=== PATIENT | female | born 1935 | race Caucasian/White ===

== ENCOUNTER 2017-08-13 15:14 | Inpatient (IN) ==
[2017-08-13] MEDS ORDERED: 0.9 % Sodium Chloride 1,000 ML IVC ONE (15:36)
[2017-08-13] MEDS ORDERED: Ondansetron 4 MG/2 ML VIAL IVP PRN ×2 (15:37→23:39)
--- NOTE | 2017-08-13 15:43 | Emergency Department Note ---
Disposition Clinical Impression: Non-STEMI (non-ST elevated myocardial infarction) Abdominal pain Qualifiers: Abdominal location: generalized Qualified Code(s): R10.84 - Generalized abdominal pain Nausea and vomiting Qualifiers: Vomiting type: unspecified Vomiting Intractability: intractable Qualified Code( s): R11.2 - Nausea with vomiting, unspecified Disposition: Admitted As Inpatient Condition: Serious Time of Disposition: 21:06 General Adult HPI - General Chief complaint: ED Chest Pain Stated complaint: chest pain Time Seen by Provider: 08/13/17 15:19 Source: patient Limitations: no limitations Nursing Notes Reviewed: Yes Vital Signs Reviewed: Yes - History of Present Illness HPI Narrative: 82-year-old female complains of generalized abdominal pain 1 week. Patient states the pain has been sharp, constant but varying in intensity. Patient states over the past 3 days the pain has increased to 10/10. Patient notes out of her pain medications at home this made it better. Patient is on oxycodone 10 /325 for chronic back pain. Patient complains of high blood pressures and associated headache from high blood pressures. Patient states her headache has been going on for the past 2 weeks. Patient had follow-up with her PCP Dr. Sierra who told him that he can't add anything else for pain with her history of Parkinson's and current medications. Patient's son at bedside states that patient has been dry heaving since earlier today. Patient's last bowel movement was one day ago 2 bouts. Stool is nonbloody. Patient does state that she has been having a lot of constipation, but is using MiraLAX. Pain Scale: 10 - Related Data Home Medications Medication Instructions Recorded Confirmed Multivitamin/Iron/Folic Acid 1 each PO DAILY 08/03/15 08/13/17 [Centrum Complete Multivit Tab] Nitroglycerin [Nitrostat] 0.4 mg SL Q5M PRN 08/03/15 08/13/17 Omeprazole [PriLOSEC] 40 mg PO DAILY 08/03/15 08/13/17 Simvastatin [Zocor] 20 mg PO QPM 08/03/15 08/13/17 Lactobacillus Acidophilus 1 mg PO DAILY 11/23/15 08/13/17 [Acidophilus Probiotic] ALPRAZolam [Xanax 1 MG Tablet] 1 mg PO QID PRN 08/13/17 08/13/17 Furosemide [Lasix] 40 mg PO DAILY 08/13/17 08/13/17 Meclizine HCl [Verticalm] 25 mg PO BID PRN 08/13/17 08/13/17 Tizanidine HCl [Tizanidine HCl] 2 mg PO TID PRN 08/13/17 08/13/17 amLODIPine [Norvasc] 5 mg PO DAILY 08/13/17 08/13/17 cloNIDine HCl [Clonidine HCl] 0.2 mg PO TID 08/13/17 08/13/17 predniSONE [PredniSONE] 5 mg PO DAILY 08/13/17 08/13/17 Previous Rx's Medication Instructions Recorded Aspirin [Adult Low Dose Aspirin EC] 81 mg PO DAILY 30 Days tablet. 08/10/15 Amantadine [Symmetrel] 100 mg PO DAILY #30 capsule 11/26/15 Oxycodone HCl/Acetaminophen 1 tab PO Q6H PRN #30 tab 11/26/15 [Percocet 10-325 mg Tablet] Allergies Allergy/AdvReac Type Severity Reaction Status Date / Time cefuroxime [From Ceftin] Allergy Rash Verified 11/23/15 11:11 codeine Allergy Hallucinati Verified 11/23/15 11:11 ng levofloxacin [From Levaquin] Allergy Rash Verified 11/23/15 11:11 meloxicam Allergy Rash Verified 11/23/15 11:11 meperidine Allergy Rash Verified 11/23/15 11:11 morphine Allergy Hallucinati Verified 11/23/15 11:11 ng ondansetron Allergy Dizziness Verified 11/23/15 11:11 Sulfa (Sulfonamide Allergy Hives Verified 11/23/15 11:11 Antibiotics) terfenadine Allergy Rash Verified 11/23/15 11:11 All systems ED: reviewed and negative except as stated. Review of Systems: As Per HPI Constitutional: Reports: weakness. Denies: fever, chills Gastrointestinal: Reports: abdominal pain, nausea, vomiting, constipation Musculoskeletal: Reports: back pain (Low back), myalgia Psychiatric: Reports: anxiety Endocrine: Reports: fatigue Past Medical History - Past Medical History Attestation: Yes The following information was validated with the patient. Source: patient, nursing notes reviewed Medical history: Reports: arthritis, atrial fibrillation, cancer, coronary artery disease, fibromyalgia, GERD, hyperlipidemia, hypertension, myocardial infarction, other Surgical history: Reports: angioplasty/stent, cholecystectomy, colectomy, herniorrhaphy, hysterectomy, knee replacement Psychiatric history: Reports: anxiety, depression SAFETY SUPERVISOR history: Reports: no SAFETY SUPERVISOR history - Social History Smoking Status: Never smoker Smokeless Tobacco Status: No Alcohol use: Reports: none Drug use: Reports: none Physical Exam Vital Signs Temperature 97.6 F 08/13/17 15:18 Pulse Rate 98 08/13/17 15:18 Respiratory Rate 08/13/17 15:18 Blood Pressure 149/100 08/13/17 15:18 O2 Sat by Pulse Oximetry 98 08/13/17 15:18 Temperature 97.6 F 08/13/17 15:18 Pulse Rate 98 08/13/17 15:18 Respiratory Rate 08/13/17 15:18 Blood Pressure 149/100 08/13/17 15:18 O2 Sat by Pulse Oximetry 98 08/13/17 15:18 Oxygen Delivery Oxygen Delivery Room Air CONSTITUTIONAL: Alert and oriented X3, well-nourished, but appears to be in acute distress and has conversational dyspnea. Patient is taken short shallow breaths. HEAD: Normocephalic; atraumatic. EYES: PERRL, no scleral icterus. NOSE: The nose is normal in appearance without rhinorrhea RESP: Normal chest excursion with respiration; breath sounds clear and equal bilaterally; no wheezes, rhonchi, or rales CARD: Regular rhythm, without murmurs, rub or gallop ABD: Diffuse tenderness to palpation but appears worse in the epigastric region. Involuntary guarding no rebound tenderness. SKIN: Normal for age and race; warm and dry; no apparent lesions Vital signs are normal exception of blood pressure which is 149/100 - General Limitations: no limitations General appearance: alert, anxious Course - Reevaluation(s) Reevaluation #1: Patient has elevated troponin will be admitted for an STEMI Time: 18:27 Reevaluation #2: Patient complains of headache and is receiving 1 g Tylenol for her headache. Still attempting to get an IV started on the patient to continue patient's therapy so she can be admitted. Time: 18:33 - Consultations Consultation #1: Dr. Pino the hospitalist has accepted patient for admission Time: 19:09 Vital Signs Temperature 97.6 F 08/13/17 15:18 Pulse Rate 98 08/13/17 15:18 Respiratory Rate 26 08/13/17 15:18 Blood Pressure 149/100 08/13/17 15:18 O2 Sat by Pulse Oximetry 98 08/13/17 15:18 Temperature 98.2 F 08/13/17 20:25 Pulse Rate 80 08/13/17 20:25 Respiratory Rate 16 08/13/17 20:25 Blood Pressure 116/73 08/13/17 20:25 O2 Sat by Pulse Oximetry 96 08/13/17 20:25 Oxygen Delivery Oxygen Delivery Room Air Medical Decision Making - MDM Narrative Medical decision making narrative: Abdominal pain and concerns for mesenteric ischemia, bowel obstruction. Patient is a history of abdominal neoplasm but also has record of a CT abdomen and pelvis times one week ago which showed no tumor. It did show moderate stool Berdan for constipation. Patient has only had 2 bowel movements since then times one day ago. pt had her home meds of [place] 10/325 and her Ativan within the last hour for her pain symptoms. Patient's pain persists but given her age I am reluctant to add any further opiate pain medicine to her regimen at this time Ordered labs and imaging to encompass the chest and abdomen since patient is tachypneic and has conversational dyspnea. Patient's troponin came back elevated at 0.33. Patient still has no chest pain. We will consult cardiology. Patient will be brought into the hospital for NSTEMI. I consulted Dr. Juan David Pryor of cardiology who agrees with treatment and plan. Family to get an ultrasound-guided line placed in the left antecubital. Patient has been started on her heparin. Patient accepts this decision for admission. Dr. Pino the hospitalist has accepted patient for admission - Lab Data Lab results reviewed: Yes I reviewed the patient's lab results. Lab results narrative: Short CBC 08/13/17 08/13/17 Range/Units 19:40 17:02 WBC 9.6 10.9 (4.3-11.1) K/mcL Hgb 11.2 L 12.3 (11.5-15.4) g/dL Hct 33.4 L 36.1 (35.3-44.9) % Plt Count 293 327 (140-400) K/mcL Neutrophils # 8.0 (1.6-8.9) K/mcL BMP 08/13/17 Range/Units 17:02 Sodium 127 L (136-145) mEq/L Potassium 3.6 (3.5-5.1) mEq/L Chloride 94 L (98-107) mEq/L Carbon Dioxide 23 (23-29) mEq/L BUN 14 (8-23) mg/dL Creatinine 0.90 (0.60-1.20) mg/dL Glucose 120 H (70-105) mg/dL Calcium 9.6 (8.6-10.3) mg/dL Cardiac Enzymes 08/13/17 Range/Units 17:02 Troponin I 0.33 H* (< 0.04) ng/mL Liver Function 08/13/17 Range/Units 17:02 Total Bilirubin 0.5 (0.3-1.0) mg/dL Direct Bilirubin 0.1 (0.0-0.2) mg/dL AST 18 (13-39) Units/L ALT 14 (7-52) Units/L Alkaline Phosphatase 137 H (34-104) Units/L Albumin 3.9 (3.5-5.7) g/dL Urine 08/13/17 Range/Units 17:44 Urine Color Yellow (Yellow) Urine Clarity Clear (Clear) Urine pH 6.0 (5.0-8.0) pH Units Ur Specific [place] 1.018 (1.010-1.025) Urine Protein Negative (Neg-Trace) mg/dL Urine Glucose (UA) Normal (Normal) mg/dL Result diagrams: 08/13/17 19:40 08/13/17 17:02 Lab Results 08/13/17 08/13/17 08/13/17 Range/Units 17:02 17:02 17:02 WBC 10.9 (4.3-11.1) K/mcL RBC 4.30 (3.82-4.97) M/mcL Hgb 12.3 (11.5-15.4) g/dL Hct 36.1 (35.3-44.9) % MCV 84.0 (83.0-100.0) fL MCH 28.6 (28.0-33.3) pg MCHC 34.1 (31.6-35.5) g/dL RDW 13.2 (11.5-14.5) % Plt Count 327 (140-400) K/mcL MPV 9.2 L (9.4-12.4) fL Immature Gran % 0.5 (0-4) % Seg Neutrophils % 74.1 % Lymphocytes % 16.1 % Monocytes % 8.3 % Eosinophils % 0.6 % Basophils % 0.4 % Neutrophils # 8.0 (1.6-8.9) K/mcL Lymphocytes # 1.8 (0.6-4.6) K/mcL Monocytes # 0.9 (0.0-1.3) K/mcL Eosinophils # 0.1 (0.0-0.6) K/mcL Basophils # 0.0 (0.0-0.2) K/mcL PT (9.4-12.1) Seconds INR APTT (26.0-36.0) Seconds Heparin Anti-Xa, Unfract (0.30-0.70) IU/mL Sodium 127 L (136-145) mEq/L Potassium 3.6 (3.5-5.1) mEq/L Chloride 94 L (98-107) mEq/L Carbon Dioxide 23 (23-29) mEq/L BUN 14 (8-23) mg/dL Creatinine 0.90 (0.60-1.20) mg/dL Est GFR ( Amer) > 60 (> 60) Est GFR (Non-Af Amer) > 60 (> 60) BUN/Creatinine Ratio 16 (6-26) Glucose 120 H (70-105) mg/dL Calculated Osmolality 266 L (280-300) Lactic Acid 0.9 (0.5-2.2) mmol/L Calcium 9.6 (8.6-10.3) mg/dL Total Bilirubin 0.5 (0.3-1.0) mg/dL Direct Bilirubin 0.1 (0.0-0.2) mg/dL Indirect Bilirubin 0.4 (0.0-1.2) mg/dL AST 18 (13-39) Units/L ALT 14 (7-52) Units/L Alkaline Phosphatase 137 H (34-104) Units/L Troponin I (< 0.04) ng/mL Serum Total Protein 7.2 (6.4-8.9) g/dL Albumin 3.9 (3.5-5.7) g/dL Globulin 3.3 (2.4-3.5) g/dL Albumin/Globulin Ratio 1.2 (1.1-2.2) Lipase 7 L (11-82) Units/L Urine Color (Yellow) Urine Clarity (Clear) Urine pH (5.0-8.0) pH Units Ur Specific [place] (1.010-1.025) Urine Protein (Neg-Trace) mg/dL Urine Glucose (UA) (Normal) mg/dL Urine Ketones (Negative) mg/dL Urine Blood (Negative) Urine Nitrite (Negative) Urine Bilirubin (Negative) Urine Urobilinogen (Normal) mg/dL Ur Leukocyte Esterase (Negative) Urine Microscopic RBC (0-3) per hpf Urine Microscopic WBC (0-3) per hpf Ur Squamous Epith Cells (None-Few) per lpf Urine Bacteria (None-Few) per hpf Hyaline Casts (None-Few) per lpf Ur Culture Indicated? (NO) 08/13/17 08/13/17 08/13/17 Range/Units 17:02 17:44 19:40 WBC 9.6 (4.3-11.1) K/mcL RBC 3.93 (3.82-4.97) M/mcL Hgb 11.2 L (11.5-15.4) g/dL Hct 33.4 L (35.3-44.9) % MCV 85.0 (83.0-100.0) fL MCH 28.5 (28.0-33.3) pg MCHC 33.5 (31.6-35.5) g/dL RDW 13.2 (11.5-14.5) % Plt Count 293 (140-400) K/mcL MPV 9.0 L (9.4-12.4) fL Immature Gran % (0-4) % Seg Neutrophils % % Lymphocytes % % Monocytes % % Eosinophils % % Basophils % % Neutrophils # (1.6-8.9) K/mcL Lymphocytes # (0.6-4.6) K/mcL Monocytes # (0.0-1.3) K/mcL Eosinophils # (0.0-0.6) K/mcL Basophils # (0.0-0.2) K/mcL PT (9.4-12.1) Seconds INR APTT (26.0-36.0) Seconds Heparin Anti-Xa, Unfract (0.30-0.70) IU/mL Sodium (136-145) mEq/L Potassium (3.5-5.1) mEq/L Chloride (98-107) mEq/L Carbon Dioxide (23-29) mEq/L BUN (8-23) mg/dL Creatinine (0.60-1.20) mg/dL Est GFR ( Amer) (> 60) Est GFR (Non-Af Amer) (> 60) BUN/Creatinine Ratio (6-26) Glucose (70-105) mg/dL Calculated Osmolality (280-300) Lactic Acid (0.5-2.2) mmol/L Calcium (8.6-10.3) mg/dL Total Bilirubin (0.3-1.0) mg/dL Direct Bilirubin (0.0-0.2) mg/dL Indirect Bilirubin (0.0-1.2) mg/dL AST (13-39) Units/L ALT (7-52) Units/L Alkaline Phosphatase (34-104) Units/L Troponin I 0.33 H* (< 0.04) ng/mL Serum Total Protein (6.4-8.9) g/dL Albumin (3.5-5.7) g/dL Globulin (2.4-3.5) g/dL Albumin/Globulin Ratio (1.1-2.2) Lipase (11-82) Units/L Urine Color Yellow (Yellow) Urine Clarity Clear (Clear) Urine pH 6.0 (5.0-8.0) pH Units Ur Specific [place] 1.018 (1.010-1.025) Urine Protein Negative (Neg-Trace) mg/dL Urine Glucose (UA) Normal (Normal) mg/dL Urine Ketones Negative (Negative) mg/dL Urine Blood Negative (Negative) Urine Nitrite Negative (Negative) Urine Bilirubin Negative (Negative) Urine Urobilinogen Normal (Normal) mg/dL Ur Leukocyte Esterase Moderate H (Negative) Urine Microscopic RBC 0-3 (0-3) per hpf Urine Microscopic WBC 5-15 H (0-3) per hpf Ur Squamous Epith Cells None Seen (None-Few) per lpf Urine Bacteria None Seen (None-Few) per hpf Hyaline Casts None Seen (None-Few) per lpf Ur Culture Indicated? YES A (NO) 08/13/17 Range/Units 19:40 WBC (4.3-11.1) K/mcL RBC (3.82-4.97) M/mcL Hgb (11.5-15.4) g/dL Hct (35.3-44.9) % MCV (83.0-100.0) fL MCH (28.0-33.3) pg MCHC (31.6-35.5) g/dL RDW (11.5-14.5) % Plt Count (140-400) K/mcL MPV (9.4-12.4) fL Immature Gran % (0-4) % Seg Neutrophils % % Lymphocytes % % Monocytes % % Eosinophils % % Basophils % % Neutrophils # (1.6-8.9) K/mcL Lymphocytes # (0.6-4.6) K/mcL Monocytes # (0.0-1.3) K/mcL Eosinophils # (0.0-0.6) K/mcL Basophils # (0.0-0.2) K/mcL PT 11.5 (9.4-12.1) Seconds INR 1.1 APTT 199.0 H* (26.0-36.0) Seconds Heparin Anti-Xa, Unfract 1.08 H* (0.30-0.70) IU/mL Sodium (136-145) mEq/L Potassium (3.5-5.1) mEq/L Chloride (98-107) mEq/L Carbon Dioxide (23-29) mEq/L BUN (8-23) mg/dL Creatinine (0.60-1.20) mg/dL Est GFR ( Amer) (> 60) Est GFR (Non-Af Amer) (> 60) BUN/Creatinine Ratio (6-26) Glucose (70-105) mg/dL Calculated Osmolality (280-300) Lactic Acid (0.5-2.2) mmol/L Calcium (8.6-10.3) mg/dL Total Bilirubin (0.3-1.0) mg/dL Direct Bilirubin (0.0-0.2) mg/dL Indirect Bilirubin (0.0-1.2) mg/dL AST (13-39) Units/L ALT (7-52) Units/L Alkaline Phosphatase (34-104) Units/L Troponin I (< 0.04) ng/mL Serum Total Protein (6.4-8.9) g/dL Albumin (3.5-5.7) g/dL Globulin (2.4-3.5) g/dL Albumin/Globulin Ratio (1.1-2.2) Lipase (11-82) Units/L Urine Color (Yellow) Urine Clarity (Clear) Urine pH (5.0-8.0) pH Units Ur Specific [place] (1.010-1.025) Urine Protein (Neg-Trace) mg/dL Urine Glucose (UA) (Normal) mg/dL Urine Ketones (Negative) mg/dL Urine Blood (Negative) Urine Nitrite (Negative) Urine Bilirubin (Negative) Urine Urobilinogen (Normal) mg/dL Ur Leukocyte Esterase (Negative) Urine Microscopic RBC (0-3) per hpf Urine Microscopic WBC (0-3) per hpf Ur Squamous Epith Cells (None-Few) per lpf Urine Bacteria (None-Few) per hpf Hyaline Casts (None-Few) per lpf Ur Culture Indicated? (NO) - Radiology Data Radiology results reviewed: Yes I reviewed the patient's radiology results. Chest X-Ray 08/13/17 15:38 IMPRESSION: No acute cardiopulmonary process. D/ / 08/13/2017 17:00:45 Ilia Garza MD / melonie Interpreting Provider: Ilia Garza MD Abdomen/Pelvis CT 08/13/17 15:39 IMPRESSION: No acute noncontrast abnormality. Again demonstrated is diffusely mildly increased attenuation liver, nonspecific finding which can be seen with iron overload states, glycogen storage disease, or administration of certain iodine containing medications such as amiodarone D/ / Yanni Valdes Cha, MD / Yanni Valdes Cha, MD Interpreting Provider: Yanni Valdes Cha, MD - EKG Data EKG #1 EKG attestation: Yes I reviewed and interpreted this EKG. EKG results narrative: EKG taken 08/13/2017 at 1526 hrs. shows sinus tachycardia at a rate of 10 1 bpm with no acute ST elevations or depressions nares, no acute respiratory QT prolongation. Previous EKG for comparison taken 11/24/2015 shows sinus rhythm at a rate of 96. This EKG shows no sign of ischemia with similar waveform morphology as today.
[2017-08-13 17:16] LABS: Basophils % 0.4 %; Eosinophils # 0.1 K/mcL (0.0-0.6); Eosinophils % 0.6 %; Hematocrit 36.1 % (35.3-44.9); Hemoglobin 12.3 g/dL (11.5-15.4); Immature Granulocytes % 0.5 % (0-4); Lymphocytes # 1.8 K/mcL (0.6-4.6); Lymphocytes % 16.1 %; Mean Corpuscular HGB Conc 34.1 g/dL (31.6-35.5); Mean Corpuscular Hemoglobin 28.6 pg (28.0-33.3); Mean Platelet Volume 9.2 fL (9.4-12.4); Monocytes # 0.9 K/mcL (0.0-1.3); Monocytes % 8.3 %; Platelet Count 327 K/mcL (140-400); Red Cell Distribution Width 13.2 % (11.5-14.5); Segmented Neutrophils % 74.1 %
[2017-08-13 17:45] LABS: Alanine Aminotransferase 14 Units/L (7-52); Albumin 3.9 g/dL (3.5-5.7); Albumin/Globulin Ratio 1.2 (1.1-2.2); Alkaline Phosphatase 137 Units/L (34-104); Aspartate Amino Transferase 18 Units/L (13-39); BUN/Creatinine Ratio 16 (6-26); Bilirubin,Direct 0.1 mg/dL (0.0-0.2); Bilirubin,Indirect 0.4 mg/dL (0.0-1.2); Bilirubin,Total 0.5 mg/dL (0.3-1.0); Blood Urea Nitrogen 14 mg/dL (8-23); Calcium 9.6 mg/dL (8.6-10.3); Carbon Dioxide 23 mEq/L (23-29); Chloride 94 mEq/L (98-107); Globulin 3.3 g/dL (2.4-3.5); Glucose 120 mg/dL (70-105); Lipase 7 Units/L (11-82); Osmolality,Calculated 266 (280-300); Potassium 3.6 mEq/L (3.5-5.1); Sodium 127 mEq/L (136-145); Total Protein 7.2 g/dL (6.4-8.9); eGFR For African Americans > 60 (> 60); eGFR For Non-African Americans > 60 (> 60)
[2017-08-13 17:59] LABS: Bilirubin,Urine Negative (Negative); Blood,Urine Negative (Negative); Clarity,Urine Clear (Clear); Color,Urine Yellow (Yellow); Glucose,Urine (UA) Normal (Normal); Ketones,Urine Negative (Negative); Leukocyte Esterase,Urine Moderate (Negative); Nitrite,Urine Negative (Negative); Protein,Urine Negative (Neg-Trace); Specific Gravity,Urine 1.018 (1.010-1.025); Urobilinogen,Urine Normal (Normal)
[2017-08-13 18:04] LABS: Bacteria,Urine None Seen per hpf (None-Few); Hyaline Casts,Urine None Seen per lpf (None-Few); RBC,Urine 0-3 per hpf (0-3); Squamous Epithelial Cell,Urine None Seen per lpf (None-Few)
--- NOTE | 2017-08-13 18:11 | Emergency Department Note ---
START Narrative - START START: I examined this patient and my medical decision-making was reviewed with the FOUNDER CEO & PRESIDENT/PA/Advanced Practice Nurse/Resident Physician. I agree with the documented findings, disposition and treatment plan as described except to the extent set forth below. ED attending: Patient's emergency medicine resident Dr. Max Bah. Please see copy of this note for H&P evaluation and management and ED disposition. We both had independent [id number] time in contact with this patient. Briefly: A 82-year-old female presents although it says chest pain with abdominal pain she surgically benign but she is elderly with multiple risk factors and prior surgeries. Some mild distention but no tympany. There is no rebound or guarding. Patient is afebrile with stable vital signs. Patient is getting screening labs and noncontrast abdominal pelvic CT. Patient was recently seen for identical symptoms are nearly so per patient and family member review of the chart from [facility] shows that she was constipated but there was no therapy offered. Plan is to see if this is still present and if so we will consider offering a milk and molasses enema. Disposition pending
[2017-08-13] MEDS ORDERED: *HR* Heparin 5,000 UNIT/ML VIAL IVP PRN ×2 (18:31)
[2017-08-13] MEDS ORDERED: *HR* Heparin 5,000 UNIT/ML VIAL IVP ONE (18:31)
[2017-08-13] MEDS ORDERED: Aspirin 81 MG TAB.CHEW PO ONE (18:38)
[2017-08-13 19:47] LABS: Hematocrit 33.4 % (35.3-44.9); Hemoglobin 11.2 g/dL (11.5-15.4); Mean Corpuscular HGB Conc 33.5 g/dL (31.6-35.5); Mean Corpuscular Hemoglobin 28.5 pg (28.0-33.3); Platelet Count 293 K/mcL (140-400); Red Blood Count 3.93 M/mcL (3.82-4.97); Red Cell Distribution Width 13.2 % (11.5-14.5)
[2017-08-13 19:53] LABS: INR 1.1; Prothrombin Time 11.5 Seconds (9.4-12.1)
[2017-08-13] MEDS ORDERED: Naloxone 0.4 MG/ML INJ IVP PRN (20:10)
--- NOTE | 2017-08-13 20:13 | Internal Med History&Physical ---
Date of Encounter: 08/13/17 Time of Encounter: 20:45 Assessment and Plan (1) Non-STEMI (non-ST elevated myocardial infarction) Current visit: Yes Status: Suspected Admit inpatient. Consult cardiology. Patient placed on heparin drip per cardiology recommendations. Continue home medications. Monitor vital signs closely. High risk for complications. (2) Abdominal pain Current visit: Yes Status: Acute Patient with generalized abdominal pain. No clear etiology. Could be related to UTI/GERD. Will treat empirically with antibiotics and PPI. Pain control. Qualifiers: Abdominal location: generalized Qualified Code(s): R10.84 - Generalized abdominal pain (3) GERD (gastroesophageal reflux disease) Current visit: Yes Status: Acute Continue PPI Qualifiers: Esophagitis presence: without esophagitis Qualified Code(s): K21.9 - Gastro -esophageal reflux disease without esophagitis (4) Coronary artery disease Current visit: Yes Status: Chronic With reported chest pain yesterday. Currently being treated for non-ST elevation [place]. Cardiology consult. Continue home medications. Qualifiers: Coronary Disease-Associated Artery/Lesion type: [place] artery [place] vs. transplanted heart: [place] heart Associated angina: without angina Qualified Code(s): I25.10 - Atherosclerotic heart disease of [place] coronary artery without angina pectoris (5) Hypertension Current visit: Yes Status: Chronic Monitor blood pressure. Continue home medications. Qualifiers: Hypertension type: essential hypertension Qualified Code(s): I10 - Essential (primary) hypertension (6) UTI (urinary tract infection) Current visit: Yes Status: Acute The patient has urinalysis findings concerning for UTI. Will treat with ceftriaxone. Qualifiers: Urinary tract infection type: acute cystitis Hematuria presence: without hematuria Qualified Code(s): N30.00 - Acute cystitis without hematuria (7) Pedal edema Current visit: Yes Status: Acute Patient has bilateral pedal edema. Concerning for underlying heart failure. Will get 2-D echocardiogram. We will treat with intravenous Lasix. (8) Hyponatremia Current visit: Yes Status: Acute Patient having hyponatremia. We are finding. Etiology uncertain. She does not appear to be dehydrated. Will monitor sodium levels closely. If trends downwards, we will stop Lasix and place patient on IV fluids. Internal Medicine - H&P: HPI Chief complaint: Abdominal pain Admitted From: Emergency Dept Plans for Post Hospital Care: Home History of present illness: Ms. Cheatham is a 82 year old female with history of prior coronary artery disease , hypertension, gastroesophageal reflux disease, Parkinson's who presented to the ER with complaints of abdominal pain along with nausea and vomiting. Symptoms have been going on for 1 week now. She also had an episode of chest pain yesterday evening for which she took nitroglycerin with improvement of her pain. She denies any hematemesis or melena. No hematochezia. She has not had any constipation or diarrhea. She is able to tolerate food at this time. Past Med Surg Social Fam HX - Past Medical History Attestation: Yes The following information was validated with the patient. Medical history: arthritis, atrial fibrillation, cancer, coronary artery disease , fibromyalgia, GERD, hyperlipidemia, hypertension, myocardial infarction, other Psychiatric history: anxiety, depression - Past Surgical History Surgical History: angioplasty/stent, cholecystectomy, colectomy, herniorrhaphy, hysterectomy, knee replacement - Social History Smoking Status: Never smoker Smokeless Tobacco Status: No Alcohol use: none Drug use: none - Family History Father Family Member Ethnicity: Non- Living Status: Hx Family Cardiac Disorders: Yes Hx Family Respiratory Disorders: No Hx Family Cancer: Yes Hx Family GI Disorders: No Hx Family Endocrine Disorder: No Hx Family Neuromuscular Disorders: No Hx Family Neurologic Disorders: No Hx Family HEENT Disorders: No Hx Family Autoimmune Disorders: No Mother Living Status: Hx Family Cardiac Disorders: Yes Hx Family Respiratory Disorders: No Hx Family Cancer: No Hx Family GI Disorders: Yes Hx Family Endocrine Disorder: No Hx Family Neuromuscular Disorders: No Hx Family Neurologic Disorders: No Hx Family HEENT Disorders: No Hx Family Autoimmune Disorders: No Internal Medicine - H&P: Meds Multivitamin/Iron/Folic Acid [Centrum Complete Multivit Tab] 1 each PO DAILY [History] Nitroglycerin [Nitrostat] 0.4 mg SL Q5M PRN 08/03/15 [History] Omeprazole [PriLOSEC] 40 mg PO DAILY 08/03/15 [History] Simvastatin [Zocor] 20 mg PO QPM 08/03/15 [History] Aspirin [Adult Low Dose Aspirin EC] 81 mg PO DAILY 30 Days tablet. 08/10/15 [ Rx] Lactobacillus Acidophilus [Acidophilus Probiotic] 1 mg PO DAILY 11/23/15 [ History] Amantadine [Symmetrel] 100 mg PO DAILY #30 capsule 11/26/15 [Rx] Oxycodone HCl/Acetaminophen [Percocet 10-325 mg Tablet] 1 tab PO Q6H PRN #30 tab 11/26/15 [Rx] ALPRAZolam [Xanax 1 MG Tablet] 1 mg PO QID PRN 08/13/17 [History] Furosemide [Lasix] 40 mg PO DAILY 08/13/17 [History] Meclizine HCl [Verticalm] 25 mg PO BID PRN 08/13/17 [History] Tizanidine HCl [Tizanidine HCl] 2 mg PO TID PRN 08/13/17 [History] amLODIPine [Norvasc] 5 mg PO DAILY 08/13/17 [History] cloNIDine HCl [Clonidine HCl] 0.2 mg PO TID 08/13/17 [History] predniSONE [PredniSONE] 5 mg PO DAILY 08/13/17 [History] 3 Allergy/AdvReac Type Severity Reaction Status Date / Time cefuroxime [From Ceftin] Allergy Rash Verified 11/23/15 11:11 codeine Allergy Hallucinati Verified 11/23/15 11:11 ng levofloxacin [From Levaquin] Allergy Rash Verified 11/23/15 11:11 meloxicam Allergy Rash Verified 11/23/15 11:11 meperidine Allergy Rash Verified 11/23/15 11:11 morphine Allergy Hallucinati Verified 11/23/15 11:11 ng ondansetron Allergy Dizziness Verified 11/23/15 11:11 Sulfa (Sulfonamide Allergy Hives Verified 11/23/15 11:11 Antibiotics) terfenadine Allergy Rash Verified 11/23/15 11:11 All Systems PM: A 10-system review of systems was performed and is negative for pertinent findings except as documented above in the HPI. - Constitutional Constitutional: no chills, no fever(s), no night sweats - EENT Eyes: no change in vision, no discharge, no pain, no photophobia Ears: no ear discharge, no ear pain, no tinnitus Nose, mouth and throat: no dysphagia, no nasal discharge, no neck pain, no sore throat - Cardiovascular Cardiovascular ROS IM: chest pain, no diaphoresis, no dyspnea, no lightheadedness, no palpitations, no syncope - Respiratory Respiratory: no cough, no dyspnea, no wheezing, no excessive phlegm production - Gastrointestinal Gastrointestinal: abdominal pain, no diarrhea, no hematemesis, no hematochezia, no melena, no nausea, no vomiting - Genitourinary Genitourinary: no change in urinary stream, no dysuria, no flank pain, no hematuria - Musculoskeletal Musculoskeletal ROS IM: no numbness, no tingling - Integumentary Integumentary IM: no rash, no unusual bruising - Neurological Neurological ROS: no confusion, no convulsions, no focal weakness, no numbness, no tingling, no tremor(s) - Hematologic/Lymphatic Hematologic/Lymphatic: no easy bruising - Constitutional Vitals: Temp Pulse Resp BP Pulse Ox 97.6 F 97 18 131/79 94 08/13/17 15:18 08/13/17 18:32 08/13/17 19:56 08/13/17 19:56 08/13/17 18:32 General appearance: Present: cooperative, A&O X 3, answers questions appropriately - Neck Neck exam general surgery: Present: supple, trachea midline. Absent: lymphadenopathy - Respiratory Respiratory exam: Present: CTAB. Absent: accessory muscle use, rales, rhonchi, wheezes - Cardiovascular Cardiovascular exam: Present: RRR, +S1, +S2. Absent: diastolic murmur, gallop, rubs, systolic murmur - GI/Abdominal GI/Abdominal exam: Present: normal bowel sounds, soft, tenderness (mild generalized tenderness), no peritoneal signs. Absent: distended - Extremities Exam Extremities exam: Present: pedal edema (Bilateral), warm, radial pulses palpable and symmetrical. Absent: calf tenderness, cyanotic - Neurological Exam Neurological exam: Present: CN II-XII intact, oriented X3, no focal deficits. Absent: facial droop, speech deficit Internal Med - H&P Results - Labs CBC & Chem 7: 08/13/17 19:40 08/13/17 17:02 Labs: Short CBC 08/13/17 Range/Units 19:40 WBC 9.6 (4.3-11.1) K/mcL Hgb 11.2 L (11.5-15.4) g/dL Hct 33.4 L (35.3-44.9) % Plt Count 293 (140-400) K/mcL - Impressions Impressions Chest X-Ray 08/13/17 15:38 IMPRESSION: No acute cardiopulmonary process. D/ / 08/13/2017 17:00:45 Ilia Garza MD / melonie Interpreting Provider: Ilia Garza MD Abdomen/Pelvis CT 08/13/17 15:39 IMPRESSION: No acute noncontrast abnormality. Again demonstrated is diffusely mildly increased attenuation liver, nonspecific finding which can be seen with iron overload states, glycogen storage disease, or administration of certain iodine containing medications such as amiodarone D/ / Yanni Valdes Cha, MD / Yanni Valdes Cha, MD Interpreting Provider: Yanni Valdes Cha, MD
[2017-08-13] MEDS ORDERED: Nitroglycerin 0.4 MG TAB.SUBL SL PRN (20:23)
[2017-08-13 20:48] LABS: Heparin anti-factor XA UFH 1.08 IU/mL (0.30-0.70)
[2017-08-13] MEDS ORDERED: Furosemide 20 MG/2 ML VIAL IVP SCH (21:30)
[2017-08-13] MEDS: cloNIDine HCl 0.1 MG TABLET PO SCH (21:50)
[2017-08-13] MEDS: *HR* OxyCODONE/APAP 10/325 TABLET PO PRN (21:51)
[2017-08-13] MEDS: ALPRAZolam 1 MG TABLET PO PRN (21:51)
[2017-08-13] MEDS: Heparin 25,000 UNIT/500 ML D5W 25,000 UNIT/500 ML BAG IVC SCH (22:05)
[2017-08-13] MEDS: tiZANidine 4 MG TABLET PO PRN (22:28)
[2017-08-14] MEDS: 0.9 % Sodium Chloride 1,000 ML IVC SCH ×2 (01:07→12:48)
[2017-08-14 07:02] LABS: Basophils # 0.1 K/mcL (0.0-0.2); Basophils % 0.9 %; Eosinophils # 0.2 K/mcL (0.0-0.6); Eosinophils % 2.9 %; Hematocrit 34.7 % (35.3-44.9); Hemoglobin 11.3 g/dL (11.5-15.4); Immature Granulocytes % 0.5 % (0-4); Lymphocytes # 2.6 K/mcL (0.6-4.6); Lymphocytes % 32.9 %; Mean Corpuscular HGB Conc 32.6 g/dL (31.6-35.5); Mean Corpuscular Volume 85.9 fL (83.0-100.0); Mean Platelet Volume 9.7 fL (9.4-12.4); Monocytes # 0.8 K/mcL (0.0-1.3); Neutrophils # 4.3 K/mcL (1.6-8.9); Nucleated Red Blood Cells 0.2 /100 WBC (0); Platelet Count 288 K/mcL (140-400); Red Blood Count 4.04 M/mcL (3.82-4.97); Red Cell Distribution Width 13.2 % (11.5-14.5); Segmented Neutrophils % 52.8 %
[2017-08-14] MEDS: *HR* OxyCODONE/APAP 10/325 TABLET PO PRN ×3 (08:42→20:59)
[2017-08-14] MEDS: predniSONE 5 MG TABLET PO SCH (08:42)
[2017-08-14] MEDS: tiZANidine 4 MG TABLET PO PRN ×2 (08:42→15:35)
[2017-08-14] MEDS: Multivit/Ca/Min/Fe/FA 1 TAB TABLET PO SCH (08:43)
[2017-08-14] MEDS: Aspirin Enteric Coated 81 MG Tablet PO SCH (08:43)
[2017-08-14] MEDS: Lactobacillus 1 EACH CAP.SPRINK PO SCH (08:43)
[2017-08-14] MEDS: ALPRAZolam 1 MG TABLET PO PRN ×3 (08:43→20:57)
--- NOTE | 2017-08-14 10:27 | Cardiology Consult Note ---
Date of Encounter: 08/14/17 Time of Encounter: 10:23 Assessment and Plan (1) Elevated troponin Current Visit: Yes Status: Acute Troponins 0.33, 0.22, 0.11 in setting of suspected UTI (culture pending), abdominal pain with nausea and vomiting of unclear etiology (no acute abnormality on abdomen and pelvic CT). Demand ischemia vs. NSTEMI. Currently on heparin gtt. One episode of chest pain relieved with nitro without recurrence. No significant EKG changes. Hx of CAD and PCI to RCA in 2011. Echo to evaluate structure and function. Further recommendations pending echo results. If EF is preserved, will likely recommend medical management. Continue ASA, Statin. Historically HR has been unable to tolerate BB. Will add Imdur 30mg daily. (2) Coronary artery disease Current Visit: Yes Status: Chronic Prior PCI to RCA in 2011. Continue ASA and Statin. Historically HR has been unable to tolerate BB. Will add Imdur 30mg daily. Qualifiers: Coronary Disease-Associated Artery/Lesion type: [place] artery [place] vs. transplanted heart: [place] heart Associated angina: without angina Qualified Code(s): I25.10 - Atherosclerotic heart disease of [place] coronary artery without angina pectoris Discussion w patient/family: The assessment and plan as outlined above was discussed with the patient and/or family members who expressed understanding and agreement. All questions were answered. Thank you for involving us in the care of your patient. Please call with any questions. I will discuss all the above with Dr. Bae and make changes as necessary. History of Present Illness Consult date: 08/14/17 Requesting physician: Reese Sommers Consult reason: elevated troponins Chief complaint: abdominal pain, n/v, chest pain History of present illness: Ms. Cheatham is a 82 year old female with history of CAD and prior BEAN to RCA in 2011, hypertension, gastroesophageal reflux disease, Stage 3 CKD, Parkinson's who presented to the ER with complaints of abdominal pain along with nausea and vomiting for 1 week. She also had an episode of chest pain prior to admission for which she took nitroglycerin with improvement of her pain and no recurrence since. Troponins 0.33, 0.22, 0.11. Cardiology consulted for further recommendations. She reports worsening lower extremity edema over the past 2 weeks. Denies any increase in dyspnea from her baseline. EKG no significant changes. Urine culture pending. Abdominal CT no acute findings. Prior CV testing: Left heart catheterization 06/2012: Left main normal. LAD proximal 20% stenosis. RCA mid 85% stenosis (BEAN placed). Circumflex proximal 20% stenosis. Pharmacological nuclear stress test 03/20/2014: Negative for ischemia. Equivocal distal anterior and apex defect suspicious for artifact. Echocardiogram 03/20/2014: EF 65%, asymmetric hypertrophy of the basal septum without LVOT obstruction, mild PI. Echocardiogram 07/2015: LVEF 65%. Moderate diastolic dysfunction. Normal RV size and function. Mild aortic sclerosis, MG 12 mmHg. Mild TR. Past Med Surg Social Fam HX - Past Medical History Medical history: arthritis, cancer, coronary artery disease, fibromyalgia, GERD , hyperlipidemia, hypertension, myocardial infarction, other Psychiatric history: anxiety, depression - Past Surgical History Surgical History: angioplasty/stent, cholecystectomy, colectomy, herniorrhaphy, hysterectomy, knee replacement - Social History Smoking Status: Never smoker Smokeless Tobacco Status: No Alcohol use: none Drug use: none - Family History Father Family Member Ethnicity: Non- Living Status: Hx Family Cardiac Disorders: Yes Hx Family Respiratory Disorders: No Hx Family Cancer: Yes Hx Family GI Disorders: No Hx Family Endocrine Disorder: No Hx Family Neuromuscular Disorders: No Hx Family Neurologic Disorders: No Hx Family HEENT Disorders: No Hx Family Autoimmune Disorders: No Mother Living Status: Hx Family Cardiac Disorders: Yes Hx Family Respiratory Disorders: No Hx Family Cancer: No Hx Family GI Disorders: Yes Hx Family Endocrine Disorder: No Hx Family Neuromuscular Disorders: No Hx Family Neurologic Disorders: No Hx Family HEENT Disorders: No Hx Family Autoimmune Disorders: No Medications and Allergies Multivitamin/Iron/Folic Acid [Centrum Complete Multivit Tab] 1 each PO DAILY [History] Nitroglycerin [Nitrostat] 0.4 mg SL Q5M PRN 08/03/15 [History] Omeprazole [PriLOSEC] 40 mg PO DAILY 08/03/15 [History] Simvastatin [Zocor] 20 mg PO QPM 08/03/15 [History] Aspirin [Adult Low Dose Aspirin EC] 81 mg PO DAILY 30 Days tablet. 08/10/15 [ Rx] Lactobacillus Acidophilus [Acidophilus Probiotic] 1 mg PO DAILY 11/23/15 [ History] Amantadine [Symmetrel] 100 mg PO DAILY #30 capsule 11/26/15 [Rx] Oxycodone HCl/Acetaminophen [Percocet 10-325 mg Tablet] 1 tab PO Q6H PRN #30 tab 11/26/15 [Rx] ALPRAZolam [Xanax 1 MG Tablet] 1 mg PO QID PRN 08/13/17 [History] Furosemide [Lasix] 40 mg PO DAILY 08/13/17 [History] Meclizine HCl [Verticalm] 25 mg PO BID PRN 08/13/17 [History] Tizanidine HCl [Tizanidine HCl] 2 mg PO TID PRN 08/13/17 [History] amLODIPine [Norvasc] 5 mg PO DAILY 08/13/17 [History] cloNIDine HCl [Clonidine HCl] 0.2 mg PO TID 08/13/17 [History] predniSONE [PredniSONE] 5 mg PO DAILY 08/13/17 [History] 3 Allergy/AdvReac Type Severity Reaction Status Date / Time cefuroxime [From Ceftin] Allergy Rash Verified 11/23/15 11:11 codeine Allergy Hallucinati Verified 11/23/15 11:11 ng levofloxacin [From Levaquin] Allergy Rash Verified 11/23/15 11:11 meloxicam Allergy Rash Verified 11/23/15 11:11 meperidine Allergy Rash Verified 11/23/15 11:11 morphine Allergy Hallucinati Verified 11/23/15 11:11 ng ondansetron Allergy Dizziness Verified 11/23/15 11:11 Sulfa (Sulfonamide Allergy Hives Verified 11/23/15 11:11 Antibiotics) terfenadine Allergy Rash Verified 11/23/15 11:11 All Systems Review: A 10-system review of systems was performed and is negative for pertinent findings except as documented above in the HPI. - Cardiovascular Cardiovascular: as per HPI, chest pain at rest - Gastrointestinal Gastrointestinal: abdominal pain, nausea Physical Examination Vital Signs, Last 4 Hours Temp Pulse Resp BP Pulse Ox 08/14/17 08:11 96 08/14/17 08:09 98.4 F 86 16 147/68 97 Vital Signs Temp Pulse Resp BP Pulse Ox 08/14/17 08:11 96 08/14/17 08:09 98.4 F 86 16 147/68 97 08/14/17 04:21 97.8 F 77 16 130/69 96 08/14/17 00:55 97.8 F 76 16 130/70 96 08/13/17 20:25 98.2 F 80 16 116/73 96 08/13/17 19:56 18 131/79 08/13/17 18:32 97 19 132/76 94 08/13/17 15:18 97.6 F 98 26 149/100 98 Intake and Output 08/13/17 08/14/17 08/14/17 23:59 07:59 15:59 Intake Total 178 / 178 0 / 0 Output Total 300 / 300 300 / 300 0 / 0 Balance -300 / -300 -122 / -122 0 / 0 Intake: IV Fluids 178 / 178 Heparin 25,000 UNIT/500 ML D5W 178 / 178 25,000 unit In 500 ml @ 12 UNIT /KG/HR 17.962 mls/hr IVC .Q24H [facility]ENÉE Rx#:[id number] Oral 0 / 0 Output: Urine 300 / 300 300 / 300 0 / 0 Other: Meal Breakfast Percent of Meal Consumed 0% Blood Glucose* 101 General: Conversant, No Apparent Distress HEENT: Atraumatic, Normocephaly, Mucus Membranes Moist Neck: Normal carotid pulses Cardiac: Reg Rate and Rhythm, Normal S1 and S2, No Murmur Lungs: Normal Breath Sounds, No Wheeze, Rales, Rhonchi Neuro: Alert and responsive, No focal deficits noted Abdomen: Soft, Non-Tender Skin: No rashes noted on visualized skin Musculoskeletal: No Chest Wall Tenderness Extremities: Other (mild LE edema) Results 08/14/17 06:50 08/14/17 08:01 Lab Results 08/13/17 08/13/17 08/13/17 21:36 23:00 23:00 WBC Hgb Hct Plt Count APTT 45.5 H D Sodium 126 L Troponin I 0.22 H* 08/14/17 08/14/17 08/14/17 06:50 06:50 06:50 WBC 8.0 Hgb 11.3 L Hct 34.7 L Plt Count 288 APTT 70.5 H D Sodium Troponin I 0.11 H* Short CBC 08/14/17 08/13/17 08/13/17 Range/Units 06:50 19:40 17:02 WBC 8.0 9.6 10.9 (4.3-11.1) K/mcL Hgb 11.3 L 11.2 L 12.3 (11.5-15.4) g/dL Hct 34.7 L 33.4 L 36.1 (35.3-44.9) % Plt Count 288 293 327 (140-400) K/mcL Neutrophils # 4.3 8.0 (1.6-8.9) K/mcL BMP 08/14/17 08/13/17 08/13/17 Range/Units 08:01 23:00 17:02 Sodium 134 L 126 L 127 L (136-145) mEq/L Potassium 3.8 3.6 (3.5-5.1) mEq/L Chloride 102 94 L (98-107) mEq/L Carbon Dioxide 22 L 23 (23-29) mEq/L BUN 13 14 (8-23) mg/dL Creatinine 1.04 0.90 (0.60-1.20) mg/dL Glucose 104 120 H (70-105) mg/dL Calcium 8.6 9.6 (8.6-10.3) mg/dL Cardiac Enzymes 08/14/17 08/13/17 08/13/17 Range/Units 06:50 23:00 17:02 Troponin I 0.11 H* 0.22 H* 0.33 H* (< 0.04) ng/mL Liver Function 08/13/17 Range/Units 17:02 Total Bilirubin 0.5 (0.3-1.0) mg/dL Direct Bilirubin 0.1 (0.0-0.2) mg/dL AST 18 (13-39) Units/L ALT 14 (7-52) Units/L Alkaline Phosphatase 137 H (34-104) Units/L Albumin 3.9 (3.5-5.7) g/dL Urine 08/13/17 Range/Units 17:44 Urine Color Yellow (Yellow) Urine Clarity Clear (Clear) Urine pH 6.0 (5.0-8.0) pH Units Ur Specific [place] 1.018 (1.010-1.025) Urine Protein Negative (Neg-Trace) mg/dL Urine Glucose (UA) Normal (Normal) mg/dL Impressions Chest X-Ray 08/13/17 15:38 IMPRESSION: No acute cardiopulmonary process. D/ / 08/13/2017 17:00:45 Ilia Garza MD / melonie Interpreting Provider: Ilia Garza MD Abdomen/Pelvis CT 08/13/17 15:39 IMPRESSION: No acute noncontrast abnormality. Again demonstrated is diffusely mildly increased attenuation liver, nonspecific finding which can be seen with iron overload states, glycogen storage disease, or administration of certain iodine containing medications such as amiodarone D/ / Yanni Valdes Cha, MD / Yanni Valdes Cha, MD Interpreting Provider: Yanni Valdes Cha, MD Active Medications Alprazolam (Xanax) 1 mg PO QID PRN; Protocol PRN Reason: Anxiety Stop: 02/12/18 20:24 Last Admin: 08/14/17 08:43 Dose: 1 mg Amantadine HCl (Symmetrel) 100 mg PO DAILY [facility] Stop: 02/13/18 09:01 Last Admin: 08/14/17 08:43 Dose: 100 mg Amlodipine Besylate (Norvasc) 5 mg PO DAILY [facility]E PRN Reason: Protocol Stop: 02/13/18 09:01 Aspirin (Aspirin Ec) 81 mg PO DAILY [facility]E Stop: 02/13/18 09:01 Last Admin: 08/14/17 08:43 Dose: 81 mg Clonidine HCl (Clonidine Hcl) 0.2 mg PO TID [facility]E Stop: 02/12/18 21:01 Last Admin: 08/13/17 21:50 Dose: 0.2 mg Heparin Sodium (Porcine) (Heparin) 4,000 unit IVP Q6HR PRN PRN Reason: SEE COMMENTS Stop: 02/12/18 18:32 Heparin Sodium (Porcine) (Heparin) 2,000 unit IVP Q6H PRN PRN Reason: SEE COMMENTS Stop: 02/12/18 18:32 Heparin Sodium/Dextrose (Heparin 25,000 Unit/500 Ml D5w) 25,000 unit in 500 mls @ 17.962 mls/hr IVC .Q24H RENÉE; 12 UNIT/KG/HR PRN Reason: Protocol Stop: 02/12/18 18:46 Last Titration: 08/14/17 07:59 Dose: 11.99 unit/kg/hr, 17.962 mls/hr Ciprofloxacin Lactate (Cipro Premix 400 Mg/200 Ml) 400 mg in 200 mls @ 200 mls/ hr IVPB Q12H [facility] Stop: 02/13/18 00:01 Last Admin: 08/14/17 01:07 Dose: 200 mls/hr Sodium Chloride (0.9 % Sodium Chloride) 1,000 mls @ 100 mls/hr IVC .Q10H [facility] Stop: 08/14/17 19:44 Last Admin: 08/14/17 01:07 Dose: 100 mls/hr Lactobacillus Acidophilus/Rhamnosus (Culturelle) 1 each PO DAILY [facility] Stop: 02/13/18 09:01 Last Admin: 08/14/17 08:43 Dose: 1 each Meclizine HCl (Antivert) 25 mg PO BID PRN PRN Reason: DIZZINESS Last Admin: 08/13/17 22:28 Dose: 25 mg Multivitamins/Calcium (Thera M Plus) 1 tab PO DAILY [facility] Stop: 02/13/18 09:01 Last Admin: 08/14/17 08:43 Dose: 1 tab Naloxone HCl (Narcan) 0.4 mg IVP Q2MIN PRN PRN Reason: SEE COMMENTS Stop: 02/12/18 20:11 Nitroglycerin (Nitroglycerin) 0.4 mg SL Q5M PRN PRN Reason: Chest Pain Stop: 02/12/18 20:24 Omeprazole (Prilosec) 40 mg PO DAILY@0730 [facility] Stop: 02/13/18 07:31 Last Admin: 08/14/17 08:42 Dose: 40 mg Ondansetron HCl (Zofran) 4 mg IVP Q6HR PRN; Protocol PRN Reason: Nausea/Vomiting Stop: 02/12/18 23:40 Oxycodone/Acetaminophen (Percocet 10/325) 1 each PO Q6H PRN PRN Reason: Moderate Pain Stop: 02/12/18 20:24 Last Admin: 08/14/17 08:42 Dose: 1 each Prednisone (Prednisone) 5 mg PO DAILY [facility] Stop: 02/13/18 09:01 Last Admin: 08/14/17 08:42 Dose: 5 mg Simvastatin (Zocor) 20 mg PO QPM [facility]EN[facility]E PRN Reason: Protocol Stop: 02/13/18 18:01 Tizanidine HCl (Zanaflex) 2 mg PO TID PRN PRN Reason: Muscle Spasm Last Admin: 08/14/17 08:42 Dose: 2 mg - Imaging and Cardiology Echo: report reviewed Cardiac cath: report reviewed - EKG Interpretation EKG results cardiology: personally reviewed, other (12 hr tele AVG HR 80, SR, no significant pauses or arrhythmias.) Consult Discharge Plan - Plan Referrals: Eduard Sierra Jr, MD [Primary Care Provider] -
[2017-08-14 10:33] LABS: BUN/Creatinine Ratio 13 (6-26); Blood Urea Nitrogen 13 mg/dL (8-23); Calcium 8.6 mg/dL (8.6-10.3); Carbon Dioxide 22 mEq/L (23-29); Chloride 102 mEq/L (98-107); Glucose 104 mg/dL (70-105); Osmolality,Calculated 278 (280-300); Potassium 3.8 mEq/L (3.5-5.1); Sodium 134 mEq/L (136-145); eGFR For African Americans > 60 (> 60); eGFR For Non-African Americans 51 (> 60)
[2017-08-14] MEDS: Isosorbide MONOnitrate (24 HR) 30 MG TAB.ER.24H PO SCH (11:47)
[2017-08-14] MEDS: cloNIDine HCl 0.1 MG TABLET PO SCH ×3 (11:47→20:57)
[2017-08-14] MEDS: amLODIPine 5 MG TABLET PO SCH (11:47)
--- NOTE | 2017-08-14 18:32 | Internal Med Progress Note ---
Date of Encounter: 08/14/17 Time of Encounter: 10:00 - Assessment and plan (1) Non-STEMI (non-ST elevated myocardial infarction) Current Visit: Yes Status: Acute Assessment and plan: 1 denies any chest pain EKG with no ST-T wave abnormalities troponins are trending down continue with heparin drip Cardiology has been consulted-awaiting RADHA results Continue aspirin and statin Imdur Nitroglycerin as needed for chest pain (2) UTI (urinary tract infection) Current Visit: No Status: Acute Assessment and plan: 1 patient has been experiencing some burning on urination as well as lower abdominal pain and nausea urinalysis indicative of mild UTI we will continue with Cipro for now-pending culture sensitivity Qualifiers: Urinary tract infection type: site unspecified Hematuria presence: without hematuria Qualified Code(s): N39.0 - Urinary tract infection, site not specified (3) Abdominal pain Current Visit: Yes Status: Acute Assessment and plan: Patient has history of GERD as well as UTI we will continue with PPI and antibiotics Patient also complaining of some constipation today we will add Colace Qualifiers: Abdominal location: generalized Qualified Code(s): R10.84 - Generalized abdominal pain (4) Hyponatremia Current Visit: Yes Status: Acute Assessment and plan: Hyponatremia seems to be improving sodium is 134 she received 0.9 normal saline which we will stop for now continue to monitor - Time Spent With Patient less than 15 minutes - Subjective Interval history: Patient presented with abdominal pain nausea and vomiting that had been going on for approximately one week. She did have an episode of chest pain yesterday she did take a nitroglycerin which improved her pain. She did have an elevated troponin no EKG changes and was initiated on heparin drip. It was also noted she did have symptoms of UTI with positive urinalysis and started on Cipro. Today she denies any chest pain no changes in EKG troponin is trending down continues with heparin drip. She does continue to complain of lower abdominal pain mostly suprapubic as well as some burning upon urination. We will continue with the Cipro. Cardiology has been consult and awaiting RADHA - Constitutional Vitals: Temp Pulse Resp BP Pulse Ox 98.0 F 79 16 106/67 95 08/14/17 16:19 08/14/17 16:19 08/14/17 16:19 08/14/17 16:19 08/14/17 16:19 General appearance: Present: cooperative, A&O X 3, answers questions appropriately - Head Head exam: Present: atraumatic, normocephalic - Eye Eye exam: Present: PERRL, conjuntiva pink, sclera anicteric Pupils: Present: PERRL - Neck Neck exam general surgery: Present: supple, trachea midline. Absent: lymphadenopathy - Respiratory Respiratory exam: Present: CTAB. Absent: accessory muscle use, rales, rhonchi, wheezes - Cardiovascular Cardiovascular exam: Present: RRR, +S1, +S2. Absent: diastolic murmur, gallop, rubs, systolic murmur - GI/Abdominal GI/Abdominal exam: Present: normal bowel sounds, soft, tenderness, no peritoneal signs. Absent: distended - Extremities Exam Extremities exam: Present: pedal edema, warm, radial pulses palpable and symmetrical. Absent: calf tenderness, cyanotic - Neurological Exam Neurological exam: Present: CN II-XII intact, oriented X3, no focal deficits. Absent: pronater drift, facial droop, speech deficit - Skin Skin exam: Present: dry, intact Internal Medicine: Result - Labs CBC & Chem 7: 08/14/17 06:50 08/14/17 08:01 Labs: Short CBC 08/14/17 Range/Units 06:50 WBC 8.0 (4.3-11.1) K/mcL Hgb 11.3 L (11.5-15.4) g/dL Hct 34.7 L (35.3-44.9) % Plt Count 288 (140-400) K/mcL Neutrophils # 4.3 (1.6-8.9) K/mcL BMP 08/13/17 08/14/17 23:00 08:01 Sodium 126 L 134 L Potassium 3.8 Chloride 102 Carbon Dioxide 22 L BUN 13 Creatinine 1.04 Glucose 104 Calcium 8.6 Cardiac Enzymes 08/13/17 08/14/17 Range/Units 23:00 06:50 Troponin I 0.22 H* 0.11 H* (< 0.04) ng/mL - ABG Interpretation ABG results: PT/INR, D-dimer PT 11.5 Seconds (9.4-12.1) 08/13/17 19:40 - Diagnostic Studies Other Images Additional comments: Chest X-Ray 08/13/17 15:38 IMPRESSION: No acute cardiopulmonary process. D/ / 08/13/2017 17:00:45 Ilia Garza MD / melonie Interpreting Provider: Ilia Garza MD Abdomen/Pelvis CT 08/13/17 15:39 IMPRESSION: No acute noncontrast abnormality. Again demonstrated is diffusely mildly increased attenuation liver, nonspecific finding which can be seen with iron overload states, glycogen storage disease, or administration of certain iodine containing medications such as amiodarone D/ / Yanni Valdes Cha, MD / Yanni Valdes Cha, MD Interpreting Provider: Yanni Valdes Cha, MD Consult Discharge Plan - Plan Referrals: Eduard Sierra Jr, MD [Primary Care Provider] - (web request sent on 08/14/17 )
--- NOTE | 2017-08-14 19:37 | Electrocardiograph Report ---
[place] [address] Test Date: 2017-08-13 Pat Name: Rosalina Cheatham Department: 103 Room: 2A43 Gender: F Licensed Physical Therapist Assistant: CADY : [id number] Requested By: Jennifer Vivar Order Number: [id number] Reading MD: Shelia Pryor Measurements Intervals [place] Rate: 101 P: 17 SC: 196 QRS: -28 QRSD: 90 T: 23 QT: 330 QTc: 388 Interpretive Statements SINUS TACHYCARDIA VOLTAGE CRITERIA FOR LVH [MEETS CRITERIA IN ONE OF: R(aVL), S(V1), R(V5), R(V5/V6) +S(V1)] Electronically Signed On 08-14-2017 19:36:05 EST by Shelia Pryor
[2017-08-15] MEDS: tiZANidine 4 MG TABLET PO PRN ×3 (01:57→21:32)
[2017-08-15] MEDS: ALPRAZolam 1 MG TABLET PO PRN ×2 (01:57→14:35)
[2017-08-15] MEDS: Heparin 25,000 UNIT/500 ML D5W 25,000 UNIT/500 ML BAG IVC SCH (01:58)
[2017-08-15 08:15] LABS: Calcium 8.7 mg/dL (8.6-10.3); Potassium 3.4 mEq/L (3.5-5.1)
[2017-08-15] MEDS: Isosorbide MONOnitrate (24 HR) 30 MG TAB.ER.24H PO SCH (08:16)
[2017-08-15] MEDS: Lactobacillus 1 EACH CAP.SPRINK PO SCH (08:16)
[2017-08-15] MEDS: cloNIDine HCl 0.1 MG TABLET PO SCH ×3 (08:16→21:33)
[2017-08-15] MEDS: predniSONE 5 MG TABLET PO SCH (08:16)
[2017-08-15] MEDS: amLODIPine 5 MG TABLET PO SCH (08:16)
[2017-08-15] MEDS: Aspirin Enteric Coated 81 MG Tablet PO SCH (08:16)
[2017-08-15] MEDS: Multivit/Ca/Min/Fe/FA 1 TAB TABLET PO SCH (08:17)
--- NOTE | 2017-08-15 10:28 | Cardiology Progress Note ---
Date of Encounter: 08/15/17 Time of Encounter: 10:25 Assessment and Plan (1) Elevated troponin Current Visit: Yes Status: Acute Troponins 0.33, 0.22, 0.11 of unclear significance in setting of abdominal pain with nausea and vomiting of unclear etiology (no acute abnormality on abdomen and pelvic CT). Pt does have hx of esophageal stricture and dilation, now reports difficulty swallowing. Would recommend GI consult for further evaluation per primary team. Do not suspect true ACS given her symptoms are GI--nausea, vomiting, difficulty swallowing. One episode of chest pain 2 days ago relieved with nitro without recurrence. No significant EKG changes. Hx of CAD and PCI to RCA in 2011. Echo shows EF is preserved, no significant findings. Recommend medical management from cardiac standpoint--ASA, Statin, Imdur. Historically HR does not tolerate BB. Cardiology signing off. Reconsult PRN. Will coordinate outpt follow-up in 2-3 weeks. (2) Coronary artery disease Current Visit: Yes Status: Chronic Prior PCI to RCA in 2011. Continue ASA, Statin, Imdur. Historically HR has been unable to tolerate BB. Qualifiers: Coronary Disease-Associated Artery/Lesion type: [place] artery [place] vs. transplanted heart: [place] heart Associated angina: without angina Qualified Code(s): I25.10 - Atherosclerotic heart disease of [place] coronary artery without angina pectoris Discussion w patient/family: The assessment and plan as outlined above was discussed with the patient and/or family members who expressed understanding and agreement. All questions were answered. Thank you for involving us in the care of your patient. Please call with any questions. I will discuss all the above with Dr. Bae and make changes as necessary. Subjective Principal diagnosis: Elevated troponin Interval history: Pt denies chest pain overnight. Reports difficulty swallowing and nausea/ vomiting all through the night. Echo resulted--LVEF 65-70%. Asymmetric basal septal hypertrophy. Mild left ventricular diastolic dysfunction. Normal right ventricular structure and function. No significant valvular dysfunction. No pulmonary hypertension. Urine culture no growth. Objective Vital Signs, Last 4 Hours Temp Pulse Resp BP Pulse Ox 08/15/17 08:30 97.7 F 71 16 157/74 99 08/15/17 08:24 97 Vital Signs Temp Pulse Resp BP Pulse Ox 08/15/17 08:30 97.7 F 71 16 157/74 99 08/15/17 08:24 97 08/15/17 04:38 98.0 F 56 16 104/67 97 08/14/17 20:00 98.2 F 74 16 114/71 97 08/14/17 16:19 98.0 F 79 16 106/67 95 08/14/17 11:15 98.8 F 88 16 118/64 97 Intake and Output 08/14/17 08/15/17 08/15/17 23:59 07:59 15:59 Intake Total 1361 / 1361 161 / 161 397.7 / 397.7 Output Total 1150 / 1150 555 / 555 Balance 211 / 211 -394 / -394 397.7 / 397.7 Intake: IV Fluids 1361 / 1361 161 / 161 277.7 / 277.7 0.9 % Sodium Chloride 1,000 ML 1000 / 1000 @ 100 mls/hr IVC .Q10H [facility] Rx#: [id number] Heparin 25,000 UNIT/500 ML D5W 161 / 161 161 / 161 77.7 / 77.7 25,000 unit In 500 ml @ 12 UNIT /KG/HR 17.962 mls/hr IVC .Q24H [facility] Rx#:[id number] Cipro Premix 400 MG/200 ML 400 200 / 200 200 / 200 mg In 200 ml @ 200 mls/hr IVPB Q12H [facility] Rx#:[id number] Oral 120 / 120 Output: Urine 1150 / 1150 525 / 525 Emesis Other: Meal Breakfast Percent of Meal Consumed 10% Weight 75 kg Blood Glucose* 108 Patient Weight 08/15/17 23:59 Weight 75 kg General: Conversant, No Apparent Distress HEENT: Atraumatic, Normocephaly, Mucus Membranes Moist Neck: No JVD, Normal carotid pulses Cardiac: Reg Rate and Rhythm, Normal S1 and S2, No Murmur Lungs: Normal Breath Sounds, No Wheeze, Rales, Rhonchi Neuro: Alert and responsive, No focal deficits noted Abdomen: Soft, Non-Tender Skin: No rashes noted on visualized skin Musculoskeletal: No Chest Wall Tenderness Extremities: No Clubbing, No Cyanosis, No Edema, Normal Pulses Results 08/14/17 06:50 08/15/17 06:47 Lab Results 08/14/17 08/14/17 08/14/17 08:01 15:55 23:24 APTT 97.2 H 99.1 H Sodium 134 L Potassium 3.8 Chloride 102 Carbon Dioxide 22 L BUN 13 Creatinine 1.04 Glucose 104 Calcium 8.6 08/15/17 08/15/17 06:47 06:47 APTT 46.1 H D Sodium 134 L Potassium 3.4 L Chloride 103 Carbon Dioxide 25 BUN 13 Creatinine 1.09 Glucose 109 H Calcium 8.7 BMP 08/15/17 08/14/17 Range/Units 06:47 08:01 Sodium 134 L 134 L (136-145) mEq/L Potassium 3.4 L 3.8 (3.5-5.1) mEq/L Chloride 103 102 (98-107) mEq/L Carbon Dioxide 25 22 L (23-29) mEq/L BUN 13 13 (8-23) mg/dL Creatinine 1.09 1.04 (0.60-1.20) mg/dL Glucose 109 H 104 (70-105) mg/dL Calcium 8.7 8.6 (8.6-10.3) mg/dL Impressions Echocardiogram 08/13/17 21:21 Impressions: LVEF 65-70%. Asymmetric basal septal hypertrophy. Mild left ventricular diastolic dysfunction. Normal right ventricular structure and function. No significant valvular dysfunction. No pulmonary hypertension. Left Ventricular Wall Motion: Rest Echo Findings All wall segments showed normal motion. Findings: Study Quality * Technically adequate exam. ECG Findings * Normal sinus rhythm. Left Ventricle * LVEF 65-70%. * Asymmetric basal septal hypertrophy. No LVOTO. * Mild left ventricular diastolic dysfunction. Right Ventricle * Normal right ventricular structure and function. Left Atrium * Moderately dilated left atrium. Right Atrium * Normal right atrial size. Mitral Valve * Mild mitral annular calcification * Mildly calcified leaflet tips. * No mitral stenosis. * Trace mitral regurgitation. Aortic Valve * No aortic regurgitation. * Aortic valve not well visualized. * No aortic stenosis. Tricuspid Valve * Tricuspid valve not well visualized. * Trace tricuspid regurgitation. Pulmonic Valve * Pulmonic valve is not well visualized. * No pulmonic stenosis. * No pulmonic regurgitation. Pulmonary Artery * Pulmonary artery not well visualized. Aorta * Normally sized aortic root. * Ascending aorta is not well visualized. Pericardium * There is no pericardial effusion present. Interatrial Septum * Interatrial septum not well evaluated. IVC * The IVC is not well evaluated. Active Medications Alprazolam (Xanax) 1 mg PO QID PRN; Protocol PRN Reason: Anxiety Stop: 02/12/18 20:24 Last Admin: 08/15/17 01:57 Dose: 1 mg Amantadine HCl (Symmetrel) 100 mg PO DAILY [facility] Stop: 02/13/18 09:01 Last Admin: 08/15/17 08:16 Dose: 100 mg Amlodipine Besylate (Norvasc) 5 mg PO DAILY [facility] PRN Reason: Protocol Stop: 02/13/18 09:01 Last Admin: 08/15/17 08:16 Dose: 5 mg Aspirin (Aspirin Ec) 81 mg PO DAILY [facility] Stop: 02/13/18 09:01 Last Admin: 08/15/17 08:16 Dose: 81 mg Ciprofloxacin HCl (Cipro) 250 mg PO 1000,2200 [facility] Stop: 02/14/18 22:01 Clonidine HCl (Clonidine Hcl) 0.2 mg PO TID [facility] Stop: 02/12/18 21:01 Last Admin: 08/15/17 08:16 Dose: 0.2 mg Docusate Sodium (Colace) 100 mg PO BID [facility] PRN Reason: Protocol Stop: 02/13/18 21:01 Last Admin: 08/15/17 08:16 Dose: 100 mg Heparin Sodium (Porcine) (Heparin) 4,000 unit IVP Q6HR PRN PRN Reason: SEE COMMENTS Stop: 02/12/18 18:32 Heparin Sodium (Porcine) (Heparin) 2,000 unit IVP Q6H PRN PRN Reason: SEE COMMENTS Stop: 02/12/18 18:32 Last Admin: 08/15/17 08:42 Dose: 2,000 unit Heparin Sodium/Dextrose (Heparin 25,000 Unit/500 Ml D5w) 25,000 unit in 500 mls @ 17.962 mls/hr IVC .Q24H [facility]; 12 UNIT/KG/HR PRN Reason: Protocol Stop: 02/12/18 18:46 Last Titration: 08/15/17 08:35 Dose: 9.94 unit/kg/hr, 14.879 mls/hr Ciprofloxacin Lactate (Cipro Premix 400 Mg/200 Ml) 400 mg in 200 mls @ 200 mls/ hr IVPB Q12H [facility] Stop: 08/15/17 13:00 Last Infusion: 08/15/17 08:17 Dose: Infused Isosorbide Mononitrate (Imdur) 30 mg PO DAILY [facility] Stop: 02/13/18 11:01 Last Admin: 08/15/17 08:16 Dose: 30 mg Lactobacillus Acidophilus/Rhamnosus (Culturelle) 1 each PO DAILY [facility] Stop: 02/13/18 09:01 Last Admin: 08/15/17 08:16 Dose: 1 each Lidocaine HCl (Lidoderm 5% Patch) 1 each TP DAILY [facility] Stop: 02/13/18 13:31 Last Admin: 08/15/17 08:16 Dose: 1 each Meclizine HCl (Antivert) 25 mg PO BID PRN PRN Reason: DIZZINESS Last Admin: 08/13/17 22:28 Dose: 25 mg Multivitamins/Calcium (Thera M Plus) 1 tab PO DAILY [facility] Stop: 02/13/18 09:01 Last Admin: 08/15/17 08:17 Dose: 1 tab Naloxone HCl (Narcan) 0.4 mg IVP Q2MIN PRN PRN Reason: SEE COMMENTS Stop: 02/12/18 20:11 Nitroglycerin (Nitroglycerin) 0.4 mg SL Q5M PRN PRN Reason: Chest Pain Stop: 02/12/18 20:24 Omeprazole (Prilosec) 40 mg PO DAILY@0730 [facility] Stop: 02/13/18 07:31 Last Admin: 08/15/17 08:15 Dose: 40 mg Ondansetron HCl (Zofran) 4 mg IVP Q6HR PRN; Protocol PRN Reason: Nausea/Vomiting Stop: 02/12/18 23:40 Last Admin: 08/15/17 02:04 Dose: 4 mg Oxycodone/Acetaminophen (Percocet 10/325) 1 each PO Q6H PRN PRN Reason: Moderate Pain Stop: 02/12/18 20:24 Last Admin: 08/14/17 20:59 Dose: 1 each Prednisone (Prednisone) 5 mg PO DAILY [facility] Stop: 02/13/18 09:01 Last Admin: 08/15/17 08:16 Dose: 5 mg Simvastatin (Zocor) 20 mg PO QPM [facility] PRN Reason: Protocol Stop: 02/13/18 18:01 Last Admin: 08/14/17 17:20 Dose: 20 mg Tizanidine HCl (Zanaflex) 2 mg PO TID PRN PRN Reason: Muscle Spasm Last Admin: 08/15/17 01:57 Dose: 2 mg - Imaging and Cardiology Echo: report reviewed - EKG Interpretation EKG results cardiology: other (12 hr tele AVG HR 60, SR, no significant pauses or arrhythmias) Consult Discharge Plan - Plan Referrals: Eduard Sierra Jr, MD [Primary Care Provider] - (web request sent on 08/14/17 )
--- NOTE | 2017-08-15 14:09 | Internal Med Progress Note ---
Date of Encounter: 08/15/17 Time of Encounter: 13:46 - Assessment and plan (1) Abdominal pain Current Visit: Yes Status: Acute Assessment and plan: Epigastric discomfort history of esophageal stricture requiring esophageal Dilatation GI evaluation requested increased PPI to BID Qualifiers: Abdominal location: generalized Qualified Code(s): R10.84 - Generalized abdominal pain (2) GERD (gastroesophageal reflux disease) Current Visit: Yes Status: Chronic Assessment and plan: as listed above Qualifiers: Esophagitis presence: without esophagitis Qualified Code(s): K21.9 - Gastro -esophageal reflux disease without esophagitis (3) Elevated troponin Current Visit: Yes Status: Acute Assessment and plan: Cardiology evaluation appreciated Clinical presentation unlikely ACS heparin gtt discontinued continue ASA, statin, Imdur outpatient follow up recommended (4) UTI (urinary tract infection) Current Visit: Yes Status: Acute Assessment and plan: continue IV abx (Cipro) f/u urine culture Qualifiers: Urinary tract infection type: acute cystitis Hematuria presence: without hematuria Qualified Code(s): N30.00 - Acute cystitis without hematuria (5) Coronary artery disease Current Visit: Yes Status: Chronic Assessment and plan: no signs of angina present continue ASA, Statin, Imdur unable to tolerate BB Qualifiers: Coronary Disease-Associated Artery/Lesion type: [place] artery [place] vs. transplanted heart: [place] heart Associated angina: without angina Qualified Code(s): I25.10 - Atherosclerotic heart disease of [place] coronary artery without angina pectoris (6) Hypertension Current Visit: Yes Status: Chronic Assessment and plan: BP within acceptable range continue home meds Qualifiers: Hypertension type: essential hypertension Qualified Code(s): I10 - Essential (primary) hypertension (7) DVT prophylaxis Current Visit: No Status: Acute Assessment and plan: Heparin SQ (8) Hypokalemia Current Visit: No Status: Acute Assessment and plan: K supplemented continue to monitor electrolytes and replace as needed - Subjective Interval history: Patient seen and examined at bedside. Resting in chair and reports of persistent epigastric pain and heartburn. Denies any chest pain or shortness of breath. Reports of having EGD in the past with esophageal dilatation. GI evaluation requested - Constitutional Vitals: Temp Pulse Resp BP Pulse Ox 97.8 F 63 17 124/69 96 08/15/17 11:06 08/15/17 11:06 08/15/17 11:06 08/15/17 11:06 08/15/17 11:06 General appearance: Present: cooperative, A&O X 3, no acute distress, obese, answers questions appropriately - Head Head exam: Present: atraumatic, normocephalic - Respiratory Respiratory exam: Present: CTAB. Absent: respiratory distress, wheezes - Cardiovascular Cardiovascular exam: Present: RRR, +S1, +S2. Absent: diastolic murmur, gallop, rubs, systolic murmur - GI/Abdominal GI/Abdominal exam: Present: normal bowel sounds, soft, tenderness (epigastric tenderness to palpation ), no peritoneal signs. Absent: distended, rebound - Extremities Exam Extremities exam: Present: pedal edema, warm, radial pulses palpable and symmetrical. Absent: calf tenderness - Neurological Exam Neurological exam: Present: alert, oriented X3 Internal Medicine: Result - Labs CBC & Chem 7: 08/14/17 06:50 08/15/17 06:47 Labs: BMP 08/15/17 06:47 Sodium 134 L Potassium 3.4 L Chloride 103 Carbon Dioxide 25 BUN 13 Creatinine 1.09 Glucose 109 H Calcium 8.7 - ABG Interpretation ABG results: PT/INR, D-dimer PT 11.5 Seconds (9.4-12.1) 08/13/17 19:40 - Impressions Impressions Echocardiogram 08/13/17 21:21 Impressions: LVEF 65-70%. Asymmetric basal septal hypertrophy. Mild left ventricular diastolic dysfunction. Normal right ventricular structure and function. No significant valvular dysfunction. No pulmonary hypertension. Left Ventricular Wall Motion: Rest Echo Findings All wall segments showed normal motion. Findings: Study Quality * Technically adequate exam. ECG Findings * Normal sinus rhythm. Left Ventricle * LVEF 65-70%. * Asymmetric basal septal hypertrophy. No LVOTO. * Mild left ventricular diastolic dysfunction. Right Ventricle * Normal right ventricular structure and function. Left Atrium * Moderately dilated left atrium. Right Atrium * Normal right atrial size. Mitral Valve * Mild mitral annular calcification * Mildly calcified leaflet tips. * No mitral stenosis. * Trace mitral regurgitation. Aortic Valve * No aortic regurgitation. * Aortic valve not well visualized. * No aortic stenosis. Tricuspid Valve * Tricuspid valve not well visualized. * Trace tricuspid regurgitation. Pulmonic Valve * Pulmonic valve is not well visualized. * No pulmonic stenosis. * No pulmonic regurgitation. Pulmonary Artery * Pulmonary artery not well visualized. Aorta * Normally sized aortic root. * Ascending aorta is not well visualized. Pericardium * There is no pericardial effusion present. Interatrial Septum * Interatrial septum not well evaluated. IVC * The IVC is not well evaluated. Consult Discharge Plan - Plan Referrals: Eduard Sierra Jr, MD [Primary Care Provider] - (web request sent on 08/14/17 )
[2017-08-15] MEDS: *HR* OxyCODONE/APAP 10/325 TABLET PO PRN ×2 (14:35→21:33)
[2017-08-15] MEDS: *HR* Heparin 5,000 UNIT/ML VIAL SQ SCH (17:27)
[2017-08-16] MEDS: Melatonin 3 MG TABLET PO PRN (00:18)
[2017-08-16] MEDS: ALPRAZolam 1 MG TABLET PO PRN ×4 (03:37→20:17)
[2017-08-16] MEDS: *HR* OxyCODONE/APAP 10/325 TABLET PO PRN ×3 (03:37→21:58)
[2017-08-16 05:00] LABS: BUN/Creatinine Ratio 12 (6-26); Blood Urea Nitrogen 12 mg/dL (8-23); Calcium 8.7 mg/dL (8.6-10.3); Carbon Dioxide 22 mEq/L (23-29); Chloride 105 mEq/L (98-107); Glucose 104 mg/dL (70-105); Osmolality,Calculated 278 (280-300); Phosphorous 3.6 mg/dL (2.7-4.5); Potassium 3.8 mEq/L (3.5-5.1); Sodium 134 mEq/L (136-145); eGFR For African Americans > 60 (> 60); eGFR For Non-African Americans 53 (> 60)
[2017-08-16 05:39] LABS: Basophils # 0.1 K/mcL (0.0-0.2); Basophils % 0.7 %; Eosinophils # 0.3 K/mcL (0.0-0.6); Eosinophils % 3.6 %; Hematocrit 27.5 % (35.3-44.9); Hemoglobin 8.9 g/dL (11.5-15.4); Immature Granulocytes % 0.4 % (0-4); Lymphocytes # 2.1 K/mcL (0.6-4.6); Lymphocytes % 30.5 %; Mean Corpuscular HGB Conc 32.4 g/dL (31.6-35.5); Mean Corpuscular Hemoglobin 28.6 pg (28.0-33.3); Mean Corpuscular Volume 88.4 fL (83.0-100.0); Mean Platelet Volume 9.2 fL (9.4-12.4); Monocytes # 0.5 K/mcL (0.0-1.3); Monocytes % 7.8 %; Neutrophils # 3.9 K/mcL (1.6-8.9); Platelet Count 230 K/mcL (140-400); Red Blood Count 3.11 M/mcL (3.82-4.97); Red Cell Distribution Width 13.5 % (11.5-14.5)
[2017-08-16] MEDS: *HR* Heparin 5,000 UNIT/ML VIAL SQ SCH ×2 (06:25→16:54)
[2017-08-16] MEDS: predniSONE 5 MG TABLET PO SCH (08:05)
[2017-08-16] MEDS: amLODIPine 5 MG TABLET PO SCH (08:06)
[2017-08-16] MEDS: Isosorbide MONOnitrate (24 HR) 30 MG TAB.ER.24H PO SCH (08:06)
[2017-08-16] MEDS: cloNIDine HCl 0.1 MG TABLET PO SCH ×3 (08:07→20:17)
[2017-08-16] MEDS: Lactobacillus 1 EACH CAP.SPRINK PO SCH (08:07)
[2017-08-16] MEDS: Multivit/Ca/Min/Fe/FA 1 TAB TABLET PO SCH (08:07)
[2017-08-16] MEDS: Aspirin Enteric Coated 81 MG Tablet PO SCH (08:07)
--- NOTE | 2017-08-16 10:39 | Internal Med Progress Note ---
Date of Encounter: 08/16/17 Time of Encounter: 10:15 - Assessment and plan (1) Abdominal pain Current Visit: Yes Status: Acute Assessment and plan: Epigastric discomfort history of esophageal stricture requiring esophageal Dilatation Awaiting GI evaluation PPI BID Qualifiers: Abdominal location: generalized Qualified Code(s): R10.84 - Generalized abdominal pain (2) GERD (gastroesophageal reflux disease) Current Visit: Yes Status: Chronic Assessment and plan: as listed above Qualifiers: Esophagitis presence: without esophagitis Qualified Code(s): K21.9 - Gastro -esophageal reflux disease without esophagitis (3) Elevated troponin Current Visit: Yes Status: Acute Assessment and plan: Cardiology evaluation appreciated Clinical presentation unlikely ACS heparin gtt discontinued continue ASA, statin, Imdur outpatient follow up recommended (4) UTI (urinary tract infection) Current Visit: Yes Status: Acute Assessment and plan: continue IV abx (Cipro) urine culture reported no growth will continue abx for a total of 5 days (DAy 3/5) Qualifiers: Urinary tract infection type: acute cystitis Hematuria presence: without hematuria Qualified Code(s): N30.00 - Acute cystitis without hematuria (5) Coronary artery disease Current Visit: Yes Status: Chronic Assessment and plan: no signs of angina present continue ASA, Statin, Imdur unable to tolerate BB Qualifiers: Coronary Disease-Associated Artery/Lesion type: [place] artery [place] vs. transplanted heart: [place] heart Associated angina: without angina Qualified Code(s): I25.10 - Atherosclerotic heart disease of [place] coronary artery without angina pectoris (6) Hypertension Current Visit: Yes Status: Chronic Assessment and plan: BP within acceptable range continue home meds Qualifiers: Hypertension type: essential hypertension Qualified Code(s): I10 - Essential (primary) hypertension (7) DVT prophylaxis Current Visit: No Status: Acute Assessment and plan: Heparin SQ (8) Hypokalemia Current Visit: No Status: Resolved - Subjective Interval history: Patient seen and examined at bedside. Resting in chair and reports of persistent epigastric pain and heartburn. Continues to have tenderness to palpation in the epigastric region. Denies any chest pain or shortness of breath. Reports of having EGD in the past with esophageal dilatation. Awaiting GI evaluation - Constitutional Vitals: Temp Pulse Resp BP Pulse Ox 98.8 F 62 16 120/64 95 08/16/17 06:42 08/16/17 06:42 08/16/17 06:42 08/16/17 06:42 08/16/17 06:42 General appearance: Present: cooperative, A&O X 3, no acute distress, obese, answers questions appropriately - Head Head exam: Present: atraumatic, normocephalic - Eye Eye exam: Present: conjuntiva pink, sclera anicteric - Respiratory Respiratory exam: Present: CTAB. Absent: respiratory distress, wheezes - Cardiovascular Cardiovascular exam: Present: RRR, +S1, +S2. Absent: diastolic murmur, gallop, rubs, systolic murmur - GI/Abdominal GI/Abdominal exam: Present: normal bowel sounds, soft, no peritoneal signs. Absent: distended, tenderness - Extremities Exam Extremities exam: Present: pedal edema, warm, radial pulses palpable and symmetrical. Absent: calf tenderness - Neurological Exam Neurological exam: Present: alert, oriented X3 - Psychiatric Psychiatric exam: Present: normal affect, normal mood Internal Medicine: Result - Labs CBC & Chem 7: 08/16/17 05:22 08/16/17 04:09 Labs: Short CBC 08/16/17 Range/Units 05:22 WBC 6.9 (4.3-11.1) K/mcL Hgb 8.9 L D (11.5-15.4) g/dL Hct 27.5 L (35.3-44.9) % Plt Count 230 (140-400) K/mcL Neutrophils # 3.9 (1.6-8.9) K/mcL BMP 08/16/17 04:09 Sodium 134 L Potassium 3.8 Chloride 105 Carbon Dioxide 22 L BUN 12 Creatinine 1.00 Glucose 104 Calcium 8.7 - ABG Interpretation ABG results: PT/INR, D-dimer PT 11.5 Seconds (9.4-12.1) 08/13/17 19:40 Consult Discharge Plan - Plan Referrals: Eduard Sierra Jr, MD [Primary Care Provider] - 08/24/17 2:30 pm (web request sent on 08/14/17 )
--- NOTE | 2017-08-16 12:30 | Gastroenterology Consult Note ---
<Nayely Herman - Last Filed: 08/16/17 12:27> Date of Encounter: 08/16/17 Time of Encounter: 11:10 - Assessment and plan (1) Abdominal pain Current Visit: Yes Status: Acute Assessment and plan: 82 year old female who presented with abdominal pain, chest pain, nausea and vomiting. She is on prilosec for GERD. She was advised an EGD and she refuses. Continue PPI. Qualifiers: Abdominal location: generalized Qualified Code(s): R10.84 - Generalized abdominal pain (2) History of colon cancer Current Visit: Yes Status: Acute Assessment and plan: Pt has reported history of colon cancer. - Time Spent With Patient Total time spent is greater than 50% in coordination of care (as documented) at patient's floor/unit and/or counseling patient: GI History of Present Illness - Data of Consult Patient: known to practice within the last 3 years Consult date: 08/16/17 Requesting Physician: Gisselle Davis MD - Consult Narrative Reason for consult: abdominal pain History of present illness: Ms. Cheatham is a 82 year old female with history of prior coronary artery disease , hypertension, gastroesophageal reflux disease, colon cancer, and Parkinson' s. She presented to the ER with complaints of abdominal pain along with nausea and vomiting. Symptoms have been going on for 1-2 weeks now. She also had an episode of chest pain yesterday evening for which she took nitroglycerin with improvement of her pain. She denies any hematemesis or melena. No hematochezia. She reports chronic constipation and states she takes laxitives at home. She is complaining of LLQ pain , CABRERA, and dizziness. She was able to tolerate breakfast this morning. She has a history of colon resection, she states she thinks it was cancer, she is unsure of the date. She is a poor historian. Labs show a hemoglobin 8.9, platelet count 230, WBC 6.9, INR 1.1, sodium 134, creatinine 1.0, troponin Max was 0.33, lipase 7. CT abdomen showed Prominence of the intra/extrahepatic biliary ducts is stable. The attenuation of the liver is diffusely slightly decreased, similar the prior study. There is fatty replacement of the pancreas Anastomotic sutures of the sigmoid colon are present. The bowel otherwise shows normal caliber and course without suspected wall thickening. There is evidence of prior anterior abdominal wall hernia repair. There is some laxity of the lower anterior abdominal wall. EGD: 06/30 normal EGD with dilation Colonoscopy: 2013 colonic angioectasias, 1 tubular adenoma NSAIDS: ASA 81 mg Anticoagulants: none Past Med Surg Social Fam HX - Past Medical History Medical history: arthritis, cancer, coronary artery disease, fibromyalgia, GERD , hyperlipidemia, hypertension, myocardial infarction, other Psychiatric history: anxiety, depression - Past Surgical History Surgical History: angioplasty/stent, cholecystectomy, colectomy, herniorrhaphy, hysterectomy, knee replacement - Social History Smoking Status: Never smoker Smokeless Tobacco Status: No Alcohol use: none Drug use: none - Family History Father Family Member Ethnicity: Non- Living Status: Hx Family Cardiac Disorders: Yes Hx Family Respiratory Disorders: No Hx Family Cancer: Yes Hx Family GI Disorders: No Hx Family Endocrine Disorder: No Hx Family Neuromuscular Disorders: No Hx Family Neurologic Disorders: No Hx Family HEENT Disorders: No Hx Family Autoimmune Disorders: No Mother Living Status: Hx Family Cardiac Disorders: Yes Hx Family Respiratory Disorders: No Hx Family Cancer: No Hx Family GI Disorders: Yes Hx Family Endocrine Disorder: No Hx Family Neuromuscular Disorders: No Hx Family Neurologic Disorders: No Hx Family HEENT Disorders: No Hx Family Autoimmune Disorders: No Review of Systems: GI: as per [place] GENERAL: denies fever, or chills EYES: denies yellow discoloration ENT: denies pain with swallowing or difficulty swallowing CARDIO: see HPI RESP: Shortness of breath with exertion : denies change in color of urine NEURO: weakness HEME: Denies any bruising MS: chronic joint pain, DERM: denies rash or itching PSYCH: Denies history of anxiety or depression - Constitutional Vitals: Temp Pulse Resp BP Pulse Ox 98.3 F 59 17 117/69 96 08/16/17 11:14 08/16/17 11:14 08/16/17 11:14 08/16/17 11:14 08/16/17 11:14 Exam: CONSTITUTIONAL:~alert, no acute distress.~HEAD:~normocephalic.~EYES:~no jaundice.~NECK:~no obvious swelling.~HEART:~regular rate and rhythm, no murmurs. ~LUNGS:~bilateral fair air entry.~ABDOMEN:~non distended, soft, non tender, no masses palpable, no organomegaly, midline scar well healed.~RECTAL EXAM:~ Deferred.~EXTREMITIES:~no clubbing, cyanosis, 1+ BLE edema.~SKIN:~pallor noted no stigmata of chronic liver disease.~NEUROLOGIC:~no obvious focal defect.~~~~ Results - Labs CBC & Chem 7: 08/16/17 05:22 08/16/17 04:09 Labs: Last Result Calcium 8.7 mg/dL (8.6-10.3) 08/16/17 04:09 Troponin I 0.11 ng/mL (< 0.04) H* 08/14/17 06:50 Entire Visit Hgb 8.9 g/dL (11.5-15.4) L D 08/16/17 05:22 Hct 27.5 % (35.3-44.9) L 08/16/17 05:22 PT 11.5 Seconds (9.4-12.1) 08/13/17 19:40 Total Bilirubin 0.5 mg/dL (0.3-1.0) 08/13/17 17:02 AST 18 Units/L (13-39) 08/13/17 17:02 ALT 14 Units/L (7-52) 08/13/17 17:02 Lipase 7 Units/L (11-82) L 08/13/17 17:02 - ABG ABG results: PT/INR, D-dimer PT 11.5 Seconds (9.4-12.1) 08/13/17 19:40 Consult Discharge Plan - Plan Referrals: Eduard Sierra Jr, MD [Primary Care Provider] - 08/24/17 2:30 pm (web request sent on 08/14/17 ) <Sheldon Chung - Last Filed: 08/16/17 23:02> Date of Encounter: 08/16/17 Time of Encounter: 17:00 - Time Spent With Patient Total time spent is greater than 50% in coordination of care (as documented) at patient's floor/unit and/or counseling patient: GI History of Present Illness - Data of Consult Requesting Physician: Gisselle Davis MD - Consult Narrative History of present illness: Ms. Cheatham is a 82 year old female - Constitutional Vitals: Temp Pulse Resp BP Pulse Ox 97.4 F L 60 16 127/74 96 08/16/17 19:28 08/16/17 19:28 08/16/17 19:28 08/16/17 19:28 08/16/17 19:28 Results - Labs CBC & Chem 7: 08/16/17 05:22 08/16/17 04:09 Labs: Last Result Calcium 8.7 mg/dL (8.6-10.3) 08/16/17 04:09 Troponin I 0.11 ng/mL (< 0.04) H* 08/14/17 06:50 Entire Visit Hgb 8.9 g/dL (11.5-15.4) L D 08/16/17 05:22 Hct 27.5 % (35.3-44.9) L 08/16/17 05:22 PT 11.5 Seconds (9.4-12.1) 08/13/17 19:40 Total Bilirubin 0.5 mg/dL (0.3-1.0) 08/13/17 17:02 AST 18 Units/L (13-39) 08/13/17 17:02 ALT 14 Units/L (7-52) 08/13/17 17:02 Lipase 7 Units/L (11-82) L 08/13/17 17:02 - ABG ABG results: PT/INR, D-dimer PT 11.5 Seconds (9.4-12.1) 08/13/17 19:40 - Attending Attestation I examined this patient and my medical decision-making was reviewed with the P[employer] RO[employer] TAPPER. I agree with the documented findings, disposition and treatment plan as described except to the extent set forth below. Pt with LLQ pain. Hx of partial colectomy now with sigmoid anastomosis. Last colon in 2012. Pain in LLQ. CT negative. Rec: Bentyl 10 mg TID, Fiber supplements, need colon if pt agrees
[2017-08-16] MEDS: tiZANidine 4 MG TABLET PO PRN ×2 (15:30→21:57)
[2017-08-17] MEDS: Melatonin 3 MG TABLET PO PRN (00:13)
[2017-08-17 03:22] LABS: Basophils # 0.1 K/mcL (0.0-0.2); Basophils % 0.6 %; Eosinophils # 0.3 K/mcL (0.0-0.6); Eosinophils % 3.1 %; Hematocrit 27.4 % (35.3-44.9); Hemoglobin 8.9 g/dL (11.5-15.4); Immature Granulocytes % 0.4 % (0-4); Lymphocytes # 2.9 K/mcL (0.6-4.6); Mean Corpuscular HGB Conc 32.5 g/dL (31.6-35.5); Mean Corpuscular Hemoglobin 28.7 pg (28.0-33.3); Mean Corpuscular Volume 88.4 fL (83.0-100.0); Mean Platelet Volume 9.3 fL (9.4-12.4); Monocytes # 0.6 K/mcL (0.0-1.3); Monocytes % 7.5 %; Neutrophils # 4.2 K/mcL (1.6-8.9); Platelet Count 242 K/mcL (140-400); Red Cell Distribution Width 13.5 % (11.5-14.5); Segmented Neutrophils % 52.4 %
[2017-08-17 03:31] LABS: Calcium 8.3 mg/dL (8.6-10.3); Magnesium 1.9 mg/dL (1.6-2.6); Phosphorous 4.7 mg/dL (2.7-4.5); Potassium 3.6 mEq/L (3.5-5.1)
[2017-08-17] MEDS: ALPRAZolam 1 MG TABLET PO PRN ×2 (04:36→09:25)
[2017-08-17] MEDS: *HR* OxyCODONE/APAP 10/325 TABLET PO PRN ×2 (04:39→12:15)
[2017-08-17] MEDS: *HR* Heparin 5,000 UNIT/ML VIAL SQ SCH (05:57)
[2017-08-17 06:28] VITALS: BP 149/65
[2017-08-17] MEDS: Lactobacillus 1 EACH CAP.SPRINK PO SCH (09:24)
[2017-08-17] MEDS: cloNIDine HCl 0.1 MG TABLET PO SCH (09:24)
[2017-08-17] MEDS: amLODIPine 5 MG TABLET PO SCH (09:24)
[2017-08-17] MEDS: predniSONE 5 MG TABLET PO SCH (09:24)
[2017-08-17] MEDS: Multivit/Ca/Min/Fe/FA 1 TAB TABLET PO SCH (09:24)
[2017-08-17] MEDS: Isosorbide MONOnitrate (24 HR) 30 MG TAB.ER.24H PO SCH (09:25)
[2017-08-17] MEDS: tiZANidine 4 MG TABLET PO PRN (09:25)
[2017-08-17] MEDS: Aspirin Enteric Coated 81 MG Tablet PO SCH (09:25)
--- NOTE | 2017-08-17 13:26 | Discharge Summary ---
Date of Encounter: 08/17/17 Time of Encounter: 12:35 - Discharge Diagnosis (1) Abdominal pain Priority: Primary Status: Acute Qualifiers: Abdominal location: generalized Qualified Code(s): R10.84 - Generalized abdominal pain (2) GERD (gastroesophageal reflux disease) Priority: Secondary Status: Chronic Qualifiers: Esophagitis presence: without esophagitis Qualified Code(s): K21.9 - Gastro -esophageal reflux disease without esophagitis (3) Elevated troponin Priority: Primary Status: Acute (4) UTI (urinary tract infection) Priority: Secondary Status: Acute Qualifiers: Urinary tract infection type: acute cystitis Hematuria presence: without hematuria Qualified Code(s): N30.00 - Acute cystitis without hematuria (5) Coronary artery disease Priority: Secondary Status: Chronic Qualifiers: Coronary Disease-Associated Artery/Lesion type: [place] artery [place] vs. transplanted heart: [place] heart Associated angina: without angina Qualified Code(s): I25.10 - Atherosclerotic heart disease of [place] coronary artery without angina pectoris (6) Hypertension Priority: Secondary Status: Chronic Qualifiers: Hypertension type: essential hypertension Qualified Code(s): I10 - Essential (primary) hypertension (7) DVT prophylaxis Priority: Secondary Status: Acute (8) Hypokalemia Priority: Secondary Status: Resolved - Discharge Medications Prescriptions: Ciprofloxacin [Cipro] 250 mg PO 1000,2200 #5 tablet Dicyclomine [Bentyl] 10 mg PO TID #90 capsule Isosorbide MONOnitrate (24 HR) [Imdur] 30 mg PO DAILY #30 tab.er.24h Omeprazole [PriLOSEC] 40 mg PO BIDAC #30 capsule. Home Medications: Multivitamin/Iron/Folic Acid [Centrum Complete Multivit Tab] 1 each PO DAILY [History] Nitroglycerin [Nitrostat] 0.4 mg SL Q5M PRN 08/03/15 [History] Simvastatin [Zocor] 20 mg PO QPM 08/03/15 [History] Aspirin [Adult Low Dose Aspirin EC] 81 mg PO DAILY 30 Days tablet. 08/10/15 [ Rx] Lactobacillus Acidophilus [Acidophilus Probiotic] 1 mg PO DAILY 11/23/15 [ History] Amantadine [Symmetrel] 100 mg PO DAILY #30 capsule 11/26/15 [Rx] Oxycodone HCl/Acetaminophen [Percocet 10-325 mg Tablet] 1 tab PO Q6H PRN #30 tab 11/26/15 [Rx] ALPRAZolam [Xanax 1 MG Tablet] 1 mg PO QID PRN 08/13/17 [History] Furosemide [Lasix] 40 mg PO DAILY 08/13/17 [History] Meclizine HCl [Verticalm] 25 mg PO BID PRN 08/13/17 [History] Tizanidine HCl 2 mg PO TID PRN 08/13/17 [History] amLODIPine [Norvasc] 5 mg PO DAILY 08/13/17 [History] cloNIDine HCl [Clonidine HCl] 0.2 mg PO TID 08/13/17 [History] predniSONE [PredniSONE] 5 mg PO DAILY 08/13/17 [History] Ciprofloxacin [Cipro] 250 mg PO 1000,2200 #5 tablet 08/17/17 [Rx] Dicyclomine [Bentyl] 10 mg PO TID #90 capsule 08/17/17 [Rx] Isosorbide MONOnitrate (24 HR) [Imdur] 30 mg PO DAILY #30 tab.er.24h 08/17/17 [ Rx] Omeprazole [PriLOSEC] 40 mg PO BIDAC #30 capsule.dr 08/17/17 [Rx] Allergies/Adverse Reactions: 3 Allergy/AdvReac Type Severity Reaction Status Date / Time cefuroxime [From Ceftin] Allergy Rash Verified 11/23/15 11:11 codeine Allergy Hallucinati Verified 11/23/15 11:11 ng levofloxacin [From Levaquin] Allergy Rash Verified 11/23/15 11:11 meloxicam Allergy Rash Verified 11/23/15 11:11 meperidine Allergy Rash Verified 11/23/15 11:11 morphine Allergy Hallucinati Verified 11/23/15 11:11 ng ondansetron Allergy Dizziness Verified 11/23/15 11:11 Sulfa (Sulfonamide Allergy Hives Verified 11/23/15 11:11 Antibiotics) terfenadine Allergy Rash Verified 11/23/15 11:11 Date of admission: 08/13/17 20:10 Primary care physician: Eduard Sierra Jr, MD Consults: 08/15/17 14:00 Consult to Gastroenterology [CONS] Routine Consulting Provider: [facility] [place] Reason for Consult: epigastric discomfort, history of esophageal dilatation Call Completed: Yes Discharging clinician: Gisselle Davis Anticipated date of discharge: 08/17/17 - Patient Status Disposition: Home, Self-Care Condition: Good Functional capacity at discharge: uses cane/walker Overall status at discharge: patient is back to baseline - Discharge Instructions Follow Up With: Eduard Sierra Jr, MD [Primary Care Provider] - 08/24/17 2:30 pm (web request sent on 08/14/17 ) Additional Instructions: Please follow up with your primary care physician within five days after your discharge from the hospital. Please follow up with cardiology within 2-3 weeks after your discharge from the hospital Please follow up with Gastroenterology within 2-3 weeks after your discharge from the hospital. Your home medications have been changed as follows: 1. Omeprazole has been increased to twice a day 2. Bentyl 10mg three times a day has been added as per Dr. Chung's recommendations 3. Imdur 30mg once a day has been added 4. Continue ciprofloxacin for two more days Please resume all other home meds as prescribed by your primary care physician. - Diet and Activity Activity: increase activity as tolerated Diet: low fat, low cholesterol, low salt diet Hospital course: Ms. Cheatham is a 82 year old female with PMH of CAD, HTN, GERD who was admitted for abd pain, chest pain, UTI. She was seen by GI and cardiology. Chest pain resolved, Imdur was added, no further cardiac work up was recommended. Pt was started on abx for UTI. Pt has history of GERD and esophageal dilatation, repeat EGD and colonoscopy was recommended however pt refused. Bentyl was added to her home meds as per GI's recommendations. Pt is currently hemodynamically stable for discharge and will follow up with PCP, cardio, and GI after discharge. - Time Spent with Patient Total time spent providing and/or coordinating discharge services: Less than 30 minutes - Constitutional Vitals: Temp Pulse Resp BP Pulse Ox 98.6 F 54 17 149/65 97 08/17/17 06:23 08/17/17 06:23 08/17/17 06:23 08/17/17 06:23 08/17/17 06:23 General appearance: Present: cooperative, A&O X 3, no acute distress, obese, answers questions appropriately - Head Head exam: Present: atraumatic, normocephalic - Eye Eye exam: Present: conjuntiva pink, sclera anicteric - Respiratory Respiratory exam: Present: CTAB. Absent: respiratory distress, wheezes - Cardiovascular Cardiovascular exam: Present: RRR, +S1, +S2. Absent: diastolic murmur, gallop, rubs, systolic murmur - GI/Abdominal GI/Abdominal exam: Present: normal bowel sounds, soft, no peritoneal signs. Absent: distended - Extremities Exam Extremities exam: Present: warm, radial pulses palpable and symmetrical. Absent : calf tenderness - Neurological Exam Neurological exam: Present: alert, oriented X3 - Psychiatric Psychiatric exam: Present: normal affect, normal mood
== END 2017-08-17 14:51 | disposition home or self-care (01) | DRG 690 ==
LOC: EMEROO 15:14 → 2ANU 15:14 → SUATTDRO 20:10
PROVIDERS: ADMIT Internal Medicine; ATTEND Internal Medicine

== ENCOUNTER 2019-01-26 13:27 | Observation (INO) ==
[2019-01-26 14:18] LABS: Hematocrit 36.9 % (35.3-44.9); Hemoglobin 11.9 g/dL (11.5-15.4); Mean Corpuscular HGB Conc 32.2 g/dL (31.6-35.5); Mean Corpuscular Hemoglobin 30.7 pg (28.0-33.3); Mean Corpuscular Volume 95.3 fL (83.0-100.0); Nucleated Red Blood Cells 0.2 /100 WBC (0); Platelet Count 292 K/mcL (140-400); Red Blood Count 3.87 M/mcL (3.82-4.97); Red Cell Distribution Width 17.6 % (11.5-14.5); White Blood Count 11.4 K/mcL (4.3-11.1)
[2019-01-26 14:49] LABS: Albumin 3.6 g/dL (3.5-5.7); Albumin/Globulin Ratio 1.1 (1.1-2.2); Bilirubin,Direct 0.1 mg/dL (0.0-0.2); Bilirubin,Indirect 0.4 mg/dL (0.0-1.2); Bilirubin,Total 0.5 mg/dL (0.3-1.0); Globulin 3.3 g/dL (2.4-3.5); Potassium 4.3 mEq/L (3.5-5.1); Total Protein 6.9 g/dL (6.4-8.9); Troponin I 0.05 ng/mL (< 0.04)
[2019-01-26 15:04] LABS: Lymphocytes # 2.5 K/mcL (0.6-4.6); Monocytes # 0.7 K/mcL (0.0-1.3); Neutrophils # 8.2 K/mcL (1.6-8.9); Platelet Estimate Normal (Normal)
[2019-01-26] MEDS ORDERED: Aspirin 325 MG TABLET PO ONE (16:06)
[2019-01-26 16:11] LABS: Bilirubin,Urine Negative (Negative); Blood,Urine Moderate (Negative); Clarity,Urine Clear (Clear); Color,Urine Yellow (Yellow); Glucose,Urine (UA) Normal (Normal); Ketones,Urine Negative (Negative); Leukocyte Esterase,Urine Negative (Negative); Nitrite,Urine Negative (Negative); Protein,Urine Negative (Neg-Trace); Urobilinogen,Urine Normal (Normal)
[2019-01-26 16:13] LABS: Bacteria,Urine None Seen per hpf (None-Few); Hyaline Casts,Urine None Seen per lpf (None-Few); RBC,Urine 0-3 per hpf (0-3); Squamous Epithelial Cell,Urine Many per lpf (None-Few); WBC,Urine 0-3 per hpf (0-3)
[2019-01-26] MEDS ORDERED: 0.9 % Sodium Chloride 1,000 ML IVC ONE (17:05)
[2019-01-26] MEDS ORDERED: Naloxone 0.4 MG/ML INJ IVP PRN (18:31)
[2019-01-26] MEDS ORDERED: *HR* HYDROmorphone 2 MG/ML SYRINGE IVP ONE (18:35)
[2019-01-26] MEDS ORDERED: MethylPREDNISolone 40 MG/ML VIAL IVP ONE (19:01)
[2019-01-26 19:16] LABS: Basophils % 0.3 %; Hematocrit 36.9 % (35.3-44.9); Hemoglobin 12.1 g/dL (11.5-15.4); Immature Granulocytes % 4.7 % (0-4); Lymphocytes # 0.8 K/mcL (0.6-4.6); Lymphocytes % 6.9 %; Mean Corpuscular HGB Conc 32.8 g/dL (31.6-35.5); Mean Corpuscular Hemoglobin 30.6 pg (28.0-33.3); Mean Corpuscular Volume 93.4 fL (83.0-100.0); Mean Platelet Volume 9.1 fL (9.4-12.4); Monocytes # 0.6 K/mcL (0.0-1.3); Monocytes % 4.9 %; Neutrophils # 9.7 K/mcL (1.6-8.9); Platelet Count 265 K/mcL (140-400); Red Blood Count 3.95 M/mcL (3.82-4.97); Red Cell Distribution Width 17.2 % (11.5-14.5); Segmented Neutrophils % 83.2 %; White Blood Count 11.7 K/mcL (4.3-11.1)
[2019-01-26 20:33] LABS: INR 1.4; Prothrombin Time 15.8 Seconds (9.4-12.1)
[2019-01-26 20:35] LABS: Troponin I 0.05 ng/mL (< 0.04)
[2019-01-26] MEDS ORDERED: *HR* Warfarin 3 MG TABLET PO ONE (20:54)
[2019-01-26] MEDS: *HR* OxyCODONE/APAP 10/325 TABLET PO PRN (21:53)
[2019-01-26] MEDS: ALPRAZolam 1 MG TABLET PO PRN (21:53)
[2019-01-26] MEDS: Ondansetron 4 MG/2 ML VIAL IVP PRN (21:53)
[2019-01-26] MEDS: tiZANidine 4 MG TABLET PO PRN (21:54)
[2019-01-27] MEDS: Metoprolol XL (24 HR) Succ 25 MG TAB.ER.24H PO SCH ×2 (00:31→10:07)
[2019-01-27] MEDS: Acetaminophen 325 MG TABLET PO PRN ×2 (01:49→23:21)
[2019-01-27 03:21] LABS: INR 1.2; Prothrombin Time 13.9 Seconds (9.4-12.1)
[2019-01-27 03:42] LABS: Troponin I 0.06 ng/mL (< 0.04)
[2019-01-27 03:58] LABS: Albumin 3.1 g/dL (3.5-5.7); Albumin/Globulin Ratio 1.1 (1.1-2.2); Bilirubin,Total 0.5 mg/dL (0.3-1.0); Calcium 8.6 mg/dL (8.6-10.3); Globulin 2.7 g/dL (2.4-3.5); Potassium 4.7 mEq/L (3.5-5.1); Total Protein 5.8 g/dL (6.4-8.9)
[2019-01-27] MEDS: ALPRAZolam 1 MG TABLET PO PRN ×2 (04:09→20:24)
[2019-01-27] MEDS: *HR* OxyCODONE/APAP 10/325 TABLET PO PRN ×3 (04:09→20:24)
[2019-01-27] MEDS: Ondansetron 4 MG/2 ML VIAL IVP PRN (09:00)
[2019-01-27] MEDS: predniSONE 10 MG TABLET PO SCH ×2 (10:07→10:08)
[2019-01-27] MEDS: Aspirin Enteric Coated 81 MG Tablet PO SCH (10:07)
[2019-01-27] MEDS: amLODIPine 5 MG TABLET PO SCH (10:07)
[2019-01-27] MEDS: Lactobacillus 1 EACH CAP.SPRINK PO SCH (10:07)
[2019-01-27] MEDS: predniSONE 20 MG TABLET PO SCH (16:48)
[2019-01-27] MEDS: tiZANidine 4 MG TABLET PO PRN ×2 (16:52→20:24)
[2019-01-27] MEDS ORDERED: *HR* Warfarin 3 MG TABLET PO ONE (18:00)
[2019-01-27] MEDS ORDERED: Warfarin perPT PO PRN (18:00)
[2019-01-28 02:27] LABS: INR 1.6; Prothrombin Time 18.4 Seconds (9.4-12.1)
[2019-01-28 07:49] VITALS: BP 135/80
[2019-01-28] MEDS: Lactobacillus 1 EACH CAP.SPRINK PO SCH (08:03)
[2019-01-28] MEDS: Metoprolol XL (24 HR) Succ 25 MG TAB.ER.24H PO SCH (08:03)
[2019-01-28] MEDS: *HR* OxyCODONE/APAP 10/325 TABLET PO PRN (08:03)
[2019-01-28] MEDS: Aspirin Enteric Coated 81 MG Tablet PO SCH (08:03)
[2019-01-28] MEDS: predniSONE 20 MG TABLET PO SCH (08:03)
[2019-01-28] MEDS: amLODIPine 5 MG TABLET PO SCH (08:03)
== END 2019-01-28 11:38 ==
LOC: EMEROOARM 13:27 → 3BNU 13:27 → SUATTDRO 18:50 → 3BNU 19:57
PROVIDERS: ADMIT Internal Medicine; ATTEND Family Medicine

== ENCOUNTER 2019-04-12 16:08 | Observation (INO) ==
[2019-04-12 17:28] LABS: Basophils # 0.1 K/mcL (0.0-0.2); Basophils % 0.6 %; Eosinophils # 0.3 K/mcL (0.0-0.6); Eosinophils % 3.5 %; Hematocrit 32.4 % (35.3-44.9); Hemoglobin 10.2 g/dL (11.5-15.4); Immature Granulocytes % 0.9 % (0-4); Lymphocytes # 0.9 K/mcL (0.6-4.6); Lymphocytes % 9.5 %; Mean Corpuscular HGB Conc 31.5 g/dL (31.6-35.5); Mean Corpuscular Hemoglobin 31.2 pg (28.0-33.3); Mean Corpuscular Volume 99.1 fL (83.0-100.0); Mean Platelet Volume 9.1 fL (9.4-12.4); Monocytes % 10.2 %; Neutrophils # 7.4 K/mcL (1.6-8.9); Platelet Count 314 K/mcL (140-400); Red Blood Count 3.27 M/mcL (3.82-4.97); Red Cell Distribution Width 14.4 % (11.5-14.5); Segmented Neutrophils % 75.3 %; White Blood Count 9.8 K/mcL (4.3-11.1)
[2019-04-12 17:52] LABS: Calcium 9.5 mg/dL (8.6-10.3); Potassium 4.6 mEq/L (3.5-5.1)
[2019-04-12 17:53] LABS: Troponin I 0.03 ng/mL (< 0.04)
[2019-04-12] MEDS ORDERED: *HR* OxyCODONE/APAP 10/325 TABLET PO PRN (19:56)
[2019-04-12] MEDS ORDERED: Nitroglycerin 0.4 MG TAB.SUBL SL PRN (19:56)
[2019-04-12] MEDS ORDERED: Furosemide 40 MG/4 ML VIAL IVP ONE (20:00)
[2019-04-12] MEDS: Famotidine 20 MG TABLET PO SCH (21:15)
[2019-04-12] MEDS: ALPRAZolam 1 MG TABLET PO PRN (21:28)
[2019-04-12] MEDS: tiZANidine 4 MG TABLET PO PRN (21:28)
[2019-04-12] MEDS: Bumetanide 1 MG TABLET PO SCH (21:52)
[2019-04-13 01:55] LABS: INR 2.2; Prothrombin Time 25.5 Seconds (9.4-12.1)
[2019-04-13] MEDS: *HR* OxyCODONE Immed Rel 5 MG TABLET PO PRN ×3 (04:45→20:55)
[2019-04-13] MEDS: ALPRAZolam 1 MG TABLET PO PRN ×3 (04:45→20:55)
[2019-04-13] MEDS: Lactulose Oral Soln 20 GM/30 ML UDC PO SCH (08:53)
[2019-04-13] MEDS: Metoprolol XL (24 HR) Succ 25 MG TAB.ER.24H PO SCH (08:53)
[2019-04-13] MEDS: Bumetanide 1 MG TABLET PO SCH (08:53)
[2019-04-13] MEDS: Famotidine 20 MG TABLET PO SCH ×2 (08:53→20:54)
[2019-04-13] MEDS: predniSONE 5 MG TABLET PO SCH (08:53)
[2019-04-13] MEDS: tiZANidine 4 MG TABLET PO PRN (10:48)
[2019-04-13] MEDS ORDERED: 0.9 % Sodium Chloride 1,000 ML IVC SCH (11:30)
[2019-04-13] MEDS ORDERED: Ondansetron ODT 4 MG TAB.RAPDIS SL PRN (15:54)
[2019-04-13] MEDS ORDERED: *HR* Warfarin 3 MG TABLET PO ONE (18:00)
[2019-04-13] MEDS ORDERED: Warfarin perPT PO PRN (18:00)
[2019-04-13] MEDS: Benzonatate 100 MG CAPSULE PO PRN (21:01)
[2019-04-14] MEDS: tiZANidine 4 MG TABLET PO PRN ×2 (00:33→13:00)
[2019-04-14] MEDS: Acetaminophen 325 MG TABLET PO PRN ×2 (00:33→15:23)
[2019-04-14 03:49] LABS: Hematocrit 31.5 % (35.3-44.9); Mean Corpuscular HGB Conc 31.7 g/dL (31.6-35.5); Mean Corpuscular Volume 97.5 fL (83.0-100.0); Mean Platelet Volume 9.4 fL (9.4-12.4); Platelet Count 325 K/mcL (140-400); Red Blood Count 3.23 M/mcL (3.82-4.97); Red Cell Distribution Width 14.1 % (11.5-14.5); White Blood Count 7.3 K/mcL (4.3-11.1)
[2019-04-14 03:55] LABS: Albumin 3.3 g/dL (3.5-5.7); Albumin/Globulin Ratio 1.2 (1.1-2.2); Bilirubin,Total 0.3 mg/dL (0.3-1.0); Calcium 8.6 mg/dL (8.6-10.3); Globulin 2.8 g/dL (2.4-3.5); Potassium 4.2 mEq/L (3.5-5.1); Total Protein 6.1 g/dL (6.4-8.9)
[2019-04-14 03:56] LABS: INR 2.7; Prothrombin Time 30.4 Seconds (9.4-12.1)
[2019-04-14] MEDS: *HR* OxyCODONE Immed Rel 5 MG TABLET PO PRN ×2 (05:35→21:10)
[2019-04-14] MEDS: ALPRAZolam 1 MG TABLET PO PRN (05:35)
[2019-04-14] MEDS: predniSONE 5 MG TABLET PO SCH (08:34)
[2019-04-14] MEDS: Famotidine 20 MG TABLET PO SCH ×2 (08:34→21:11)
[2019-04-14] MEDS: Metoprolol XL (24 HR) Succ 25 MG TAB.ER.24H PO SCH (08:34)
[2019-04-14] MEDS: Lactulose Oral Soln 20 GM/30 ML UDC PO SCH (08:35)
[2019-04-14] MEDS ORDERED: *HR* Warfarin 3 MG TABLET PO ONE (18:00)
[2019-04-14] MEDS: Benzonatate 100 MG CAPSULE PO PRN (21:10)
[2019-04-15] MEDS: tiZANidine 4 MG TABLET PO PRN ×3 (01:55→21:02)
[2019-04-15 02:52] LABS: Hematocrit 29.4 % (35.3-44.9); Hemoglobin 9.6 g/dL (11.5-15.4); Mean Corpuscular HGB Conc 32.7 g/dL (31.6-35.5); Platelet Count 321 K/mcL (140-400); Red Cell Distribution Width 13.9 % (11.5-14.5); White Blood Count 6.9 K/mcL (4.3-11.1)
[2019-04-15 03:04] LABS: INR 3.2; Prothrombin Time 36.2 Seconds (9.4-12.1)
[2019-04-15 03:10] LABS: Albumin 3.3 g/dL (3.5-5.7); Albumin/Globulin Ratio 1.2 (1.1-2.2); Bilirubin,Total 0.3 mg/dL (0.3-1.0); Calcium 8.9 mg/dL (8.6-10.3); Globulin 2.8 g/dL (2.4-3.5); Potassium 3.9 mEq/L (3.5-5.1); Total Protein 6.1 g/dL (6.4-8.9)
[2019-04-15] MEDS: *HR* OxyCODONE Immed Rel 5 MG TABLET PO PRN ×2 (04:48→13:29)
[2019-04-15] MEDS: Acetaminophen 325 MG TABLET PO PRN (09:00)
[2019-04-15] MEDS: Metoprolol XL (24 HR) Succ 25 MG TAB.ER.24H PO SCH (09:01)
[2019-04-15] MEDS: predniSONE 5 MG TABLET PO SCH (09:02)
[2019-04-15] MEDS: Lactulose Oral Soln 20 GM/30 ML UDC PO SCH (09:02)
[2019-04-15] MEDS: Famotidine 20 MG TABLET PO SCH ×2 (09:13→20:49)
[2019-04-15] MEDS: ALPRAZolam 1 MG TABLET PO PRN (09:16)
[2019-04-15] MEDS: Doxycycline 100 MG CAPSULE PO SCH ×2 (13:29→20:49)
[2019-04-15] MEDS ORDERED: Aminoglycoside Consult 1 EACH MC ONE (15:40)
[2019-04-15] MEDS: Benzonatate 100 MG CAPSULE PO PRN (21:02)
[2019-04-15] MEDS: *HR* OxyCODONE/APAP 10/325 TABLET PO PRN (21:18)
[2019-04-15] MEDS ORDERED: Ondansetron 4 MG/2 ML VIAL IVP ONE (21:40)
[2019-04-16] MEDS: *HR* OxyCODONE/APAP 10/325 TABLET PO PRN ×2 (03:16→09:16)
[2019-04-16] MEDS: ALPRAZolam 1 MG TABLET PO PRN (03:16)
[2019-04-16 03:18] LABS: Hematocrit 29.9 % (35.3-44.9); Hemoglobin 9.6 g/dL (11.5-15.4); Mean Corpuscular HGB Conc 32.1 g/dL (31.6-35.5); Mean Corpuscular Hemoglobin 31.3 pg (28.0-33.3); Mean Corpuscular Volume 97.4 fL (83.0-100.0); Mean Platelet Volume 8.7 fL (9.4-12.4); Platelet Count 307 K/mcL (140-400); Red Blood Count 3.07 M/mcL (3.82-4.97); Red Cell Distribution Width 13.8 % (11.5-14.5); White Blood Count 7.1 K/mcL (4.3-11.1)
[2019-04-16 03:29] LABS: Prothrombin Time 33.9 Seconds (9.4-12.1)
[2019-04-16 03:38] LABS: Albumin 3.5 g/dL (3.5-5.7); Albumin/Globulin Ratio 1.2 (1.1-2.2); Bilirubin,Total 0.4 mg/dL (0.3-1.0); Calcium 9.1 mg/dL (8.6-10.3); Potassium 4.2 mEq/L (3.5-5.1); Total Protein 6.5 g/dL (6.4-8.9)
[2019-04-16] MEDS ORDERED: Ondansetron 4 MG/2 ML VIAL IVP PRN (08:32)
[2019-04-16] MEDS: Doxycycline 100 MG CAPSULE PO SCH (09:04)
[2019-04-16] MEDS: Lactulose Oral Soln 20 GM/30 ML UDC PO SCH (09:05)
[2019-04-16] MEDS: Metoprolol XL (24 HR) Succ 25 MG TAB.ER.24H PO SCH (09:05)
[2019-04-16] MEDS: Famotidine 20 MG TABLET PO SCH (09:05)
[2019-04-16] MEDS: predniSONE 5 MG TABLET PO SCH (09:05)
[2019-04-16] MEDS: tiZANidine 4 MG TABLET PO PRN (09:16)
[2019-04-16 11:50] VITALS: BP 115/69
[2019-04-16] MEDS: Benzonatate 100 MG CAPSULE PO PRN (14:28)
[2019-04-16] MEDS ORDERED: *HR* Warfarin 3 MG TABLET PO ONE (18:00)
== END 2019-04-16 15:41 ==
LOC: EMEROOARM 16:08 → 3BNU 16:08
PROVIDERS: ADMIT Pharmacist; ATTEND Pharmacist

== ENCOUNTER 2019-06-11 03:29 | Inpatient (IN) ==
[2019-06-11] MEDS ORDERED: 0.9 % Sodium Chloride 1,000 ML IVC ONE (03:41)
[2019-06-11 04:09] LABS: Basophils % 0.1 %; Eosinophils # 0.2 K/mcL (0.0-0.6); Eosinophils % 2.1 %; Hematocrit 28.7 % (35.3-44.9); Hemoglobin 9.2 g/dL (11.5-15.4); Immature Granulocytes % 0.5 % (0-4); Lymphocytes # 0.8 K/mcL (0.6-4.6); Lymphocytes % 7.1 %; Mean Corpuscular HGB Conc 32.1 g/dL (31.6-35.5); Mean Corpuscular Hemoglobin 27.7 pg (28.0-33.3); Mean Corpuscular Volume 86.4 fL (83.0-100.0); Mean Platelet Volume 9.6 fL (9.4-12.4); Monocytes # 0.6 K/mcL (0.0-1.3); Monocytes % 5.8 %; Neutrophils # 8.9 K/mcL (1.6-8.9); Nucleated Red Blood Cells 0.4 /100 WBC (0); Platelet Count 384 K/mcL (140-400); Red Blood Count 3.32 M/mcL (3.82-4.97); Red Cell Distribution Width 14.6 % (11.5-14.5); Segmented Neutrophils % 84.4 %; White Blood Count 10.6 K/mcL (4.3-11.1)
[2019-06-11 04:28] LABS: Bilirubin,Urine Negative (Negative); Blood,Urine Negative (Negative); Clarity,Urine Clear (Clear); Color,Urine Yellow (Yellow); Glucose,Urine (UA) Normal (Normal); Ketones,Urine Negative (Negative); Leukocyte Esterase,Urine Negative (Negative); Nitrite,Urine Negative (Negative); Protein,Urine Negative (Neg-Trace); Specific Gravity,Urine 1.012 (1.010-1.025); Urobilinogen,Urine Normal (Normal)
[2019-06-11 04:33] LABS: Albumin/Globulin Ratio 0.7 (1.1-2.2); Bilirubin,Direct 0.1 mg/dL (0.0-0.2); Bilirubin,Indirect 0.1 mg/dL (0.0-1.0); Bilirubin,Total 0.2 mg/dL (0.3-1.0); Calcium 9.4 mg/dL (8.6-10.3); Globulin 4.2 g/dL (2.4-3.5); Phosphorous 5.7 mg/dL (2.7-4.5); Potassium 4.7 mEq/L (3.5-5.1); Total Protein 7.2 g/dL (6.4-8.9); Troponin I 0.03 ng/mL (< 0.04)
[2019-06-11 05:15] LABS: Prothrombin Time 68.9 Seconds (9.4-12.1)
[2019-06-11] MEDS ORDERED: 0.9 % Sodium Chloride 1,000 ML ONE (05:33)
[2019-06-11] MEDS ORDERED: Piperacillin/Tazobactam 3.375 GM in Water for inj. (sterile) 20 ML IVP ONE (05:58)
[2019-06-11] MEDS ORDERED: Acetaminophen 325 MG TABLET PO PRN (08:25)
[2019-06-11] MEDS ORDERED: Naloxone 0.4 MG/ML INJ IVP PRN (08:25)
[2019-06-11] MEDS ORDERED: *HR* OxyCODONE/APAP 5/325 TABLET PO PRN (08:31)
[2019-06-11] MEDS ORDERED: *HR* LORazepam 2 MG/ML VIAL IVP PRN (08:34)
[2019-06-11] MEDS ORDERED: Vancomycin 1 EACH in 0.9 % Sodium Chloride 250 ML IVPB SCH (09:00)
[2019-06-11] MEDS: *HR* OxyCODONE Immed Rel 5 MG TABLET PO PRN ×2 (09:06→23:24)
[2019-06-11] MEDS: 0.9 % Sodium Chloride 1,000 ML IVC SCH ×2 (09:29→21:59)
[2019-06-11] MEDS: Piperacillin/Tazobactam 3.375 GM in 0.9 % Sodium Chloride Mini Bag 100 ML IVPB SCH ×2 (12:14→20:41)
[2019-06-11] MEDS ORDERED: Nitroglycerin 0.4 MG TAB.SUBL SL PRN (12:33)
[2019-06-11] MEDS ORDERED: tiZANidine 4 MG TABLET PO PRN (12:33)
[2019-06-11] MEDS ORDERED: Benzonatate 100 MG CAPSULE PO PRN (12:33)
[2019-06-11] MEDS ORDERED: Haloperidol Lactate 5 MG/ML VIAL IVP ONE ×2 (14:12→16:01)
[2019-06-11] MEDS: Gentamicin Oint 15 GM TUBE TP SCH (18:34)
[2019-06-12 01:37] LABS: Basophils % 0.2 %; Eosinophils # 0.1 K/mcL (0.0-0.6); Eosinophils % 0.8 %; Hematocrit 25.7 % (35.3-44.9); Hemoglobin 8.3 g/dL (11.5-15.4); Immature Granulocytes % 1.1 % (0-4); Lymphocytes # 0.7 K/mcL (0.6-4.6); Lymphocytes % 5.7 %; Mean Corpuscular HGB Conc 32.3 g/dL (31.6-35.5); Mean Corpuscular Hemoglobin 27.4 pg (28.0-33.3); Mean Corpuscular Volume 84.8 fL (83.0-100.0); Mean Platelet Volume 10.1 fL (9.4-12.4); Monocytes # 1.2 K/mcL (0.0-1.3); Monocytes % 9.5 %; Neutrophils # 10.3 K/mcL (1.6-8.9); Nucleated Red Blood Cells 0.8 /100 WBC (0); Platelet Count 340 K/mcL (140-400); Red Blood Count 3.03 M/mcL (3.82-4.97); Red Cell Distribution Width 15.1 % (11.5-14.5); Segmented Neutrophils % 82.7 %; White Blood Count 12.4 K/mcL (4.3-11.1)
[2019-06-12 01:45] LABS: Prothrombin Time 91.8 Seconds (9.4-12.1)
[2019-06-12 01:46] LABS: INR 8.1
[2019-06-12 01:57] LABS: Calcium 8.8 mg/dL (8.6-10.3); Potassium 4.4 mEq/L (3.5-5.1)
[2019-06-12] MEDS ORDERED: Dexmedetomidine HCl 400 MCG/100 ML MLS IVC ONE (03:39)
[2019-06-12 03:46] LABS: ABG Base Excess -5 mEq/L (-2 to 3); ABG HCO3 19 mEq/L (21-27); ABG Oxygen Saturation 96 % (95-98); ABG PCO2 28 mmHg (35-45); ABG PH 7.43 pH Units (7.32-7.45); ABG PO2 80 mmHg (85-104); ABG TCO2 20 mEq/L (20-26)
[2019-06-12] MEDS ORDERED: Morphine Sulfate 2 MG/ML SYRINGE IVP ONE (03:46)
[2019-06-12] MEDS ORDERED: Dexmedetomidine HCl 400 MCG/100 ML MLS IVC SCH (05:00)
[2019-06-12 05:23] LABS: Acinetobacter baumannii by PCR Not Detected (Not Detect); Candida albicans by PCR Not Detected (Not Detect); Candida glabrata by PCR Not Detected (Not Detect); Candida krusei by PCR Not Detected (Not Detect); Candida parapsilosis by PCR Not Detected (Not Detect); Candida tropicalis by PCR Not Detected (Not Detect); Enterobacter cloacae Cmplx PCR Not Detected (Not Detect); Enterobacteriaceae by PCR Not Detected (Not Detect); Enterococcus by PCR Not Detected (Not Detect); Escherichia coli by PCR Not Detected (Not Detect); Klebsiella oxytoca by PCR Not Detected (Not Detect); Klebsiella pneumoniae by PCR Not Detected (Not Detect); Proteus by PCR Not Detected (Not Detect); Pseudomonas aeruginosa by PCR Not Detected (Not Detect); Serratia marcescens by PCR Not Detected (Not Detect); Staphylococcus aureus by PCR Not Detected (Not Detect); Staphylococcus by PCR Not Detected (Not Detect); Streptococcus agalactiae(B)PCR Not Detected (Not Detect); Streptococcus by PCR DETECTED (Not Detect); Streptococcus pneumoniae PCR Not Detected (Not Detect); Streptococcus pyogenes (A) PCR Not Detected (Not Detect)
[2019-06-12] MEDS: Piperacillin/Tazobactam 3.375 GM in 0.9 % Sodium Chloride Mini Bag 100 ML IVPB SCH ×3 (05:27→20:00)
[2019-06-12] MEDS ORDERED: Ringers Solution, Lactated 1,000 ML IVC ONE (05:41)
[2019-06-12 05:58] LABS: Activated Partial Thrombo Time 69.6 Seconds (26.0-36.0)
[2019-06-12 06:10] LABS: ABG Base Excess -5 mEq/L (-2 to 3); ABG HCO3 19 mEq/L (21-27); ABG Oxygen Saturation 96 % (95-98); ABG PCO2 29 mmHg (35-45); ABG PH 7.42 pH Units (7.32-7.45); ABG PO2 75 mmHg (85-104); ABG TCO2 19 mEq/L (20-26)
[2019-06-12 06:54] LABS: Bilirubin,Urine Negative (Negative); Blood,Urine Moderate (Negative); Clarity,Urine Clear (Clear); Color,Urine Yellow (Yellow); Glucose,Urine (UA) Normal (Normal); Ketones,Urine Negative (Negative); Leukocyte Esterase,Urine Negative (Negative); Nitrite,Urine Negative (Negative); PH,Urine 5.5 pH Units (5.0-8.0); Protein,Urine 30 mg/dL (Neg-Trace); Specific Gravity,Urine 1.015 (1.010-1.025); Urobilinogen,Urine Normal (Normal)
[2019-06-12 07:06] LABS: Basophils % 0.2 %; Eosinophils # 0.1 K/mcL (0.0-0.6); Eosinophils % 0.9 %; Hematocrit 22.9 % (35.3-44.9); Hemoglobin 7.5 g/dL (11.5-15.4); Immature Granulocytes % 1.1 % (0-4); Lymphocytes # 0.6 K/mcL (0.6-4.6); Lymphocytes % 5.5 %; Mean Corpuscular HGB Conc 32.8 g/dL (31.6-35.5); Mean Corpuscular Hemoglobin 27.8 pg (28.0-33.3); Mean Corpuscular Volume 84.8 fL (83.0-100.0); Monocytes # 0.9 K/mcL (0.0-1.3); Monocytes % 8.4 %; Neutrophils # 8.9 K/mcL (1.6-8.9); Nucleated Red Blood Cells 0.8 /100 WBC (0); Platelet Count 313 K/mcL (140-400); Red Cell Distribution Width 15.1 % (11.5-14.5); Segmented Neutrophils % 83.9 %; White Blood Count 10.6 K/mcL (4.3-11.1)
[2019-06-12 07:06] LABS: RBC,Urine 0-3 per hpf (0-3); Squamous Epithelial Cell,Urine Few per lpf (None-Few)
[2019-06-12 07:27] LABS: Alanine Aminotransferase 22 Units/L (7-52); Albumin 2.6 g/dL (3.5-5.7); Albumin/Globulin Ratio 0.7 (1.1-2.2); Alkaline Phosphatase 163 Units/L (34-104); Aspartate Amino Transferase 35 Units/L (13-39); BUN/Creatinine Ratio 14 (6-26); Bilirubin,Total 0.3 mg/dL (0.3-1.0); Blood Urea Nitrogen 22 mg/dL (8-23); Calcium 8.6 mg/dL (8.6-10.3); Carbon Dioxide 17 mEq/L (23-29); Chloride 111 mEq/L (98-107); Globulin 3.5 g/dL (2.4-3.5); Glucose 86 mg/dL (70-105); Osmolality,Calculated 293 (280-300); Potassium 4.3 mEq/L (3.5-5.1); Salicylate < 2.5 mg/dL (15.0-30.0); Sodium 140 mEq/L (136-145); Total Protein 6.1 g/dL (6.4-8.9); eGFR For African Americans 38 (> 60); eGFR For Non-African Americans 31 (> 60)
[2019-06-12] MEDS: Ringers Solution, Lactated 1,000 ML IVC SCH ×2 (07:32→15:42)
[2019-06-12 07:47] LABS: Potassium,Urine 64.9 mEq/L; Sodium, Urine 101.4 mEq/L
[2019-06-12 07:48] LABS: Bilirubin,Urine Negative (Negative); Blood,Urine Moderate (Negative); Clarity,Urine Clear (Clear); Color,Urine Yellow (Yellow); Glucose,Urine (UA) Normal (Normal); Ketones,Urine Trace mg/dL (Negative); Leukocyte Esterase,Urine Small (Negative); Nitrite,Urine Negative (Negative); Protein,Urine 30 mg/dL (Neg-Trace); Specific Gravity,Urine 1.017 (1.010-1.025); Urobilinogen,Urine Normal (Normal)
[2019-06-12 07:51] LABS: Bacteria,Urine None Seen per hpf (None-Few); Hyaline Casts,Urine Few per lpf (None-Few); Squamous Epithelial Cell,Urine Many per lpf (None-Few)
[2019-06-12] MEDS: Hydrocortisone Sodium Succ 100 MG/2 ML VIAL IVP SCH ×3 (08:53→23:03)
[2019-06-12] MEDS ORDERED: Pantoprazole 40 MG VIAL IVP SCH (11:15)
[2019-06-12 14:03] LABS: Albumin 2.9 g/dL (3.5-5.7); Albumin/Globulin Ratio 0.9 (1.1-2.2); Bilirubin,Total 0.5 mg/dL (0.3-1.0); Globulin 3.4 g/dL (2.4-3.5); Magnesium 1.7 mg/dL (1.6-2.6); Potassium 4.4 mEq/L (3.5-5.1); Total Protein 6.3 g/dL (6.4-8.9)
[2019-06-12 14:05] LABS: Troponin I 0.25 ng/mL (< 0.04)
[2019-06-12] MEDS: Famotidine 20 MG TABLET PO SCH (15:07)
[2019-06-12] MEDS: Lactulose Oral Soln 20 GM/30 ML UDC PO SCH (15:08)
[2019-06-12] MEDS: Metoprolol XL (24 HR) Succ 25 MG TAB.ER.24H PO SCH (15:08)
[2019-06-12] MEDS: Norepinephrine 4 MG in 0.9 % Sodium Chloride 250 ML IVC SCH (15:10)
[2019-06-12] MEDS: Gentamicin Oint 15 GM TUBE TP SCH (15:44)
[2019-06-12] MEDS: *HR* Metoprolol 5 MG/5 ML VIAL IVP PRN (17:00)
[2019-06-12 19:42] LABS: ABG Base Excess -7 mEq/L (-2 to 3); ABG HCO3 18 mEq/L (21-27); ABG Oxygen Saturation 98 % (95-98); ABG PCO2 32 mmHg (35-45); ABG PH 7.36 pH Units (7.32-7.45); ABG PO2 99 mmHg (85-104); ABG TCO2 19 mEq/L (20-26)
[2019-06-12] MEDS ORDERED: Furosemide 20 MG/2 ML VIAL IVP ONE ×2 (19:43→22:56)
[2019-06-12] MEDS: Dexmedetomidine HCl 400 MCG/100 ML MLS IVC SCH (20:00)
[2019-06-12 20:09] LABS: White Blood Count 14.1 K/mcL (4.3-11.1)
[2019-06-12 20:10] LABS: Basophils % 0.1 %; Hematocrit 25.3 % (35.3-44.9); Hemoglobin 8.1 g/dL (11.5-15.4); Immature Granulocytes % 1.3 % (0-4); Lymphocytes # 0.4 K/mcL (0.6-4.6); Lymphocytes % 2.6 %; Mean Corpuscular Hemoglobin 27.6 pg (28.0-33.3); Mean Corpuscular Volume 86.1 fL (83.0-100.0); Mean Platelet Volume 9.9 fL (9.4-12.4); Monocytes # 0.2 K/mcL (0.0-1.3); Monocytes % 1.4 %; Neutrophils # 13.3 K/mcL (1.6-8.9); Nucleated Red Blood Cells 0.9 /100 WBC (0); Platelet Count 333 K/mcL (140-400); Red Blood Count 2.94 M/mcL (3.82-4.97); Red Cell Distribution Width 15.3 % (11.5-14.5); Segmented Neutrophils % 94.6 %
[2019-06-12 20:23] LABS: INR 1.4; Prothrombin Time 16.4 Seconds (9.4-12.1)
[2019-06-12 20:29] LABS: Calcium 9.5 mg/dL (8.6-10.3); Potassium 4.6 mEq/L (3.5-5.1)
[2019-06-12] MEDS: FentaNYL (PF) 1,000 MCG in 0.9 % Sodium Chloride 80 ML IVC SCH (21:56)
[2019-06-12] MEDS ORDERED: Artificial Tears SOLN 15 ML BOTTLE BOTH EYES PRN (22:01)
[2019-06-12] MEDS: Chlorhexidine Rinse 15 ML MOUTHWASH MM SCH (22:57)
[2019-06-12] MEDS: Artificial Tears SOLN 15 ML BOTTLE BOTH EYES SCH (23:04)
[2019-06-12] MEDS: Nystatin POWDER 30 GM BOTTLE TP SCH (23:34)
[2019-06-13 02:26] LABS: Basophils % 0.1 %; Hematocrit 22.6 % (35.3-44.9); Hemoglobin 7.2 g/dL (11.5-15.4); Immature Granulocytes % 1.4 % (0-4); Lymphocytes # 0.5 K/mcL (0.6-4.6); Lymphocytes % 4.9 %; Mean Corpuscular HGB Conc 31.9 g/dL (31.6-35.5); Mean Corpuscular Hemoglobin 27.4 pg (28.0-33.3); Mean Corpuscular Volume 85.9 fL (83.0-100.0); Mean Platelet Volume 10.1 fL (9.4-12.4); Monocytes # 0.2 K/mcL (0.0-1.3); Monocytes % 2.5 %; Neutrophils # 8.5 K/mcL (1.6-8.9); Platelet Count 256 K/mcL (140-400); Red Blood Count 2.63 M/mcL (3.82-4.97); Red Cell Distribution Width 15.4 % (11.5-14.5); Segmented Neutrophils % 91.1 %; White Blood Count 9.4 K/mcL (4.3-11.1)
[2019-06-13 02:27] LABS: INR 1.3; Prothrombin Time 14.8 Seconds (9.4-12.1)
[2019-06-13 02:32] LABS: Calcium 9.3 mg/dL (8.6-10.3); Magnesium 1.9 mg/dL (1.6-2.6); Phosphorous 6.2 mg/dL (2.7-4.5); Potassium 4.1 mEq/L (3.5-5.1)
[2019-06-13 02:41] LABS: Troponin I 1.87 ng/mL (< 0.04)
[2019-06-13] MEDS ORDERED: *HR* Heparin 5,000 UNIT/ML VIAL IVP PRN ×2 (02:50)
[2019-06-13] MEDS ORDERED: *HR* Heparin 5,000 UNIT/ML VIAL IVP ONE (02:57)
[2019-06-13] MEDS ORDERED: Heparin 25,000 UNIT/250 ML D5W 25,000 UNIT/250 ML IV.SOLN IVC SCH (03:00)
[2019-06-13] MEDS: Artificial Tears SOLN 15 ML BOTTLE BOTH EYES SCH ×5 (04:09→20:16)
[2019-06-13] MEDS: Piperacillin/Tazobactam 3.375 GM in 0.9 % Sodium Chloride Mini Bag 100 ML IVPB SCH ×3 (04:12→20:16)
[2019-06-13] MEDS: FentaNYL (PF) 1,000 MCG in 0.9 % Sodium Chloride 80 ML IVC SCH ×3 (04:25→20:14)
[2019-06-13 04:41] LABS: ABG Base Excess -4 mEq/L (-2 to 3); ABG HCO3 19 mEq/L (21-27); ABG Oxygen Saturation 100 % (95-98); ABG PCO2 26 mmHg (35-45); ABG PH 7.47 pH Units (7.32-7.45); ABG PO2 216 mmHg (85-104); ABG TCO2 20 mEq/L (20-26); Blood Gas Modality ASSIST CONTROL; Blood Gas VT 480 cc
[2019-06-13] MEDS: Pantoprazole 40 MG VIAL IVP SCH ×2 (05:06→17:25)
[2019-06-13] MEDS: Dexmedetomidine HCl 400 MCG/100 ML MLS IVC SCH ×3 (06:31→16:34)
[2019-06-13] MEDS: Hydrocortisone Sodium Succ 100 MG/2 ML VIAL IVP SCH ×2 (07:59→16:06)
[2019-06-13] MEDS: Lactulose Oral Soln 20 GM/30 ML UDC PO SCH (08:00)
[2019-06-13] MEDS: Chlorhexidine Rinse 15 ML MOUTHWASH MM SCH ×2 (08:00→20:16)
[2019-06-13] MEDS: Famotidine 20 MG TABLET PO SCH (08:00)
[2019-06-13] MEDS: Nystatin POWDER 30 GM BOTTLE TP SCH ×3 (08:00→20:16)
[2019-06-13] MEDS: Norepinephrine 4 MG in 0.9 % Sodium Chloride 250 ML IVC SCH (08:02)
[2019-06-13] MEDS: Aspirin Enteric Coated 81 MG Tablet PO SCH (08:05)
[2019-06-13 09:55] LABS: Hematocrit 26.3 % (35.3-44.9); Hemoglobin 8.6 g/dL (11.5-15.4)
[2019-06-13] MEDS: Metoprolol XL (24 HR) Succ 25 MG TAB.ER.24H PO SCH (10:10)
[2019-06-13 10:13] LABS: Albumin 2.8 g/dL (3.5-5.7); Albumin/Globulin Ratio 0.8 (1.1-2.2); Bilirubin,Total 0.7 mg/dL (0.3-1.0); Globulin 3.7 g/dL (2.4-3.5); Magnesium 1.9 mg/dL (1.6-2.6); Potassium 3.6 mEq/L (3.5-5.1); Total Protein 6.5 g/dL (6.4-8.9)
[2019-06-13] MEDS ORDERED: *HR* Midazolam HCl 5 MG/5 ML VIAL IVP ONE (10:22)
[2019-06-13] MEDS ORDERED: *HR* Etomidate 40 MG/20 ML VIAL IVP ONE (10:22)
[2019-06-13] MEDS: Gentamicin Oint 15 GM TUBE TP SCH (23:54)
[2019-06-14] MEDS: Hydrocortisone Sodium Succ 100 MG/2 ML VIAL IVP SCH ×2 (00:06→07:20)
[2019-06-14] MEDS: Artificial Tears SOLN 15 ML BOTTLE BOTH EYES SCH ×6 (00:06→20:03)
[2019-06-14 03:09] LABS: Basophils % 0.2 %; Hematocrit 26.8 % (35.3-44.9); Hemoglobin 8.7 g/dL (11.5-15.4); Immature Granulocytes % 1.9 % (0-4); Lymphocytes # 0.5 K/mcL (0.6-4.6); Lymphocytes % 4.6 %; Mean Corpuscular HGB Conc 32.5 g/dL (31.6-35.5); Mean Corpuscular Hemoglobin 27.4 pg (28.0-33.3); Mean Corpuscular Volume 84.5 fL (83.0-100.0); Mean Platelet Volume 9.7 fL (9.4-12.4); Monocytes # 0.5 K/mcL (0.0-1.3); Monocytes % 4.8 %; Neutrophils # 9.9 K/mcL (1.6-8.9); Platelet Count 212 K/mcL (140-400); Red Blood Count 3.17 M/mcL (3.82-4.97); Red Cell Distribution Width 15.8 % (11.5-14.5); Segmented Neutrophils % 88.5 %; White Blood Count 11.2 K/mcL (4.3-11.1)
[2019-06-14 03:17] LABS: INR 1.1; Prothrombin Time 12.7 Seconds (9.4-12.1)
[2019-06-14] MEDS: FentaNYL (PF) 1,000 MCG in 0.9 % Sodium Chloride 80 ML IVC SCH (03:27)
[2019-06-14 03:35] LABS: Albumin 2.7 g/dL (3.5-5.7); Albumin/Globulin Ratio 0.7 (1.1-2.2); Bilirubin,Total 0.4 mg/dL (0.3-1.0); Calcium 8.8 mg/dL (8.6-10.3); Globulin 3.7 g/dL (2.4-3.5); Magnesium 1.9 mg/dL (1.6-2.6); Potassium 3.2 mEq/L (3.5-5.1); Total Protein 6.4 g/dL (6.4-8.9)
[2019-06-14] MEDS ORDERED: Potassium Chloride Elixir 20 MEQ/15 ML UDC GTUBE ONE (03:40)
[2019-06-14 04:28] LABS: ABG Base Excess -6 mEq/L (-2 to 3); ABG HCO3 17 mEq/L (21-27); ABG Oxygen Saturation 100 % (95-98); ABG PCO2 23 mmHg (35-45); ABG PH 7.48 pH Units (7.32-7.45); ABG PO2 156 mmHg (85-104); ABG TCO2 18 mEq/L (20-26); Blood Gas Modality AF; Blood Gas VT 480 cc
[2019-06-14] MEDS: Pantoprazole 40 MG VIAL IVP SCH ×2 (04:41→17:26)
[2019-06-14] MEDS: Piperacillin/Tazobactam 3.375 GM in 0.9 % Sodium Chloride Mini Bag 100 ML IVPB SCH (04:41)
[2019-06-14] MEDS: Norepinephrine 4 MG in 0.9 % Sodium Chloride 250 ML IVC SCH (07:20)
[2019-06-14] MEDS: Chlorhexidine Rinse 15 ML MOUTHWASH MM SCH ×2 (07:27→20:04)
[2019-06-14] MEDS: Lactulose Oral Soln 20 GM/30 ML UDC PO SCH (07:32)
[2019-06-14] MEDS: Famotidine 20 MG TABLET PO SCH (07:32)
[2019-06-14] MEDS: Nystatin POWDER 30 GM BOTTLE TP SCH ×3 (07:32→21:19)
[2019-06-14] MEDS: Aspirin Enteric Coated 81 MG Tablet PO SCH (07:32)
[2019-06-14] MEDS: Metoprolol XL (24 HR) Succ 25 MG TAB.ER.24H PO SCH (07:33)
[2019-06-14] MEDS: Dexmedetomidine HCl 400 MCG/100 ML MLS IVC SCH (07:34)
[2019-06-14] MEDS ORDERED: Furosemide 20 MG/2 ML VIAL IVP ONE (07:43)
[2019-06-14] MEDS: Clindamycin 600 MG/50 ML 600 MG/50 ML IV.SOLN IVPB SCH ×2 (09:16→16:11)
[2019-06-14] MEDS ORDERED: Aminoglycoside Consult 1 EACH MC ONE (09:47)
[2019-06-14] MEDS: *HR* Heparin 5,000 UNIT/ML VIAL SQ SCH (17:26)
[2019-06-14] MEDS: *HR* OxyCODONE Immed Rel 5 MG TABLET PO PRN (20:44)
[2019-06-15] MEDS: Artificial Tears SOLN 15 ML BOTTLE BOTH EYES SCH ×3 (00:15→07:30)
[2019-06-15] MEDS: Clindamycin 600 MG/50 ML 600 MG/50 ML IV.SOLN IVPB SCH ×4 (00:19→23:57)
[2019-06-15] MEDS: *HR* Metoprolol 5 MG/5 ML VIAL IVP PRN (02:27)
[2019-06-15] MEDS: Gentamicin Oint 15 GM TUBE TP SCH (03:14)
[2019-06-15] MEDS: *HR* OxyCODONE Immed Rel 5 MG TABLET PO PRN (03:15)
[2019-06-15 03:32] LABS: Basophils % 0.2 %; Eosinophils % 0.3 %; Hematocrit 27.2 % (35.3-44.9); Hemoglobin 8.6 g/dL (11.5-15.4); Immature Granulocytes % 2.5 % (0-4); Lymphocytes # 1.1 K/mcL (0.6-4.6); Lymphocytes % 8.5 %; Mean Corpuscular HGB Conc 31.6 g/dL (31.6-35.5); Mean Corpuscular Hemoglobin 27.1 pg (28.0-33.3); Mean Corpuscular Volume 85.8 fL (83.0-100.0); Mean Platelet Volume 9.6 fL (9.4-12.4); Monocytes # 0.8 K/mcL (0.0-1.3); Monocytes % 6.3 %; Neutrophils # 10.9 K/mcL (1.6-8.9); Nucleated Red Blood Cells 0.6 /100 WBC (0); Platelet Count 204 K/mcL (140-400); Red Blood Count 3.17 M/mcL (3.82-4.97); Red Cell Distribution Width 15.8 % (11.5-14.5); Segmented Neutrophils % 82.2 %; White Blood Count 13.3 K/mcL (4.3-11.1)
[2019-06-15 03:43] LABS: INR 1.6; Prothrombin Time 18.5 Seconds (9.4-12.1)
[2019-06-15 03:52] LABS: Albumin 2.9 g/dL (3.5-5.7); Albumin/Globulin Ratio 0.9 (1.1-2.2); Bilirubin,Total 0.4 mg/dL (0.3-1.0); Calcium 8.7 mg/dL (8.6-10.3); Globulin 3.4 g/dL (2.4-3.5); Potassium 2.7 mEq/L (3.5-5.1); Total Protein 6.3 g/dL (6.4-8.9)
[2019-06-15] MEDS ORDERED: Potassium Chloride 40 MEQ, Lidocaine 1% 2 ML in 0.9 % Sodium Chloride 500 ML IVPB ONE (04:27)
[2019-06-15] MEDS ORDERED: *HR* Metoprolol 5 MG/5 ML VIAL IVP ONE (04:49)
[2019-06-15] MEDS: *HR* Heparin 5,000 UNIT/ML VIAL SQ SCH ×2 (04:53→17:13)
[2019-06-15] MEDS: Pantoprazole 40 MG VIAL IVP SCH (04:53)
[2019-06-15 06:11] LABS: Troponin I 0.64 ng/mL (< 0.04)
[2019-06-15] MEDS ORDERED: ALPRAZolam 0.5 MG TABLET PO PRN (07:21)
[2019-06-15] MEDS: Chlorhexidine Rinse 15 ML MOUTHWASH MM SCH (07:30)
[2019-06-15] MEDS: Norepinephrine 4 MG in 0.9 % Sodium Chloride 250 ML IVC SCH (07:30)
[2019-06-15] MEDS: Lactulose Oral Soln 20 GM/30 ML UDC PO SCH (07:30)
[2019-06-15] MEDS: Aspirin Enteric Coated 81 MG Tablet PO SCH (08:29)
[2019-06-15] MEDS: Metoprolol XL (24 HR) Succ 25 MG TAB.ER.24H PO SCH (08:29)
[2019-06-15] MEDS: Famotidine 20 MG TABLET PO SCH (08:29)
[2019-06-15] MEDS: Nystatin POWDER 30 GM BOTTLE TP SCH ×3 (08:35→21:54)
[2019-06-15] MEDS ORDERED: Acetaminophen 325 MG TABLET PO PRN (11:36)
[2019-06-15] MEDS ORDERED: Nitroglycerin 0.4 MG TAB.SUBL SL PRN (11:36)
[2019-06-15] MEDS ORDERED: Naloxone 0.4 MG/ML INJ IVP PRN (11:36)
[2019-06-15] MEDS: *HR* OxyCODONE/APAP 5/325 TABLET PO PRN ×2 (13:07→19:34)
[2019-06-15] MEDS: ALPRAZolam 0.5 MG TABLET PO PRN (20:56)
[2019-06-15] MEDS ORDERED: Acetaminophen IV 1,000 MG/100 ML INFUS..BTL IVPB ONE (21:29)
[2019-06-16] MEDS: *HR* OxyCODONE/APAP 5/325 TABLET PO PRN ×3 (03:41→20:47)
[2019-06-16] MEDS ORDERED: Ondansetron 4 MG/2 ML VIAL IVP ONE (04:15)
[2019-06-16] MEDS ORDERED: Ondansetron 4 MG/2 ML VIAL ONE (04:17)
[2019-06-16] MEDS: ALPRAZolam 0.5 MG TABLET PO PRN (04:55)
[2019-06-16 04:58] LABS: Basophils % 0.3 %; Eosinophils # 0.3 K/mcL (0.0-0.6); Eosinophils % 1.9 %; Hematocrit 26.7 % (35.3-44.9); Hemoglobin 8.3 g/dL (11.5-15.4); Immature Granulocytes % 2.2 % (0-4); Lymphocytes # 1.5 K/mcL (0.6-4.6); Lymphocytes % 9.7 %; Mean Corpuscular HGB Conc 31.1 g/dL (31.6-35.5); Mean Corpuscular Hemoglobin 26.9 pg (28.0-33.3); Mean Corpuscular Volume 86.7 fL (83.0-100.0); Mean Platelet Volume 10.4 fL (9.4-12.4); Monocytes # 1.3 K/mcL (0.0-1.3); Monocytes % 8.4 %; Neutrophils # 11.7 K/mcL (1.6-8.9); Nucleated Red Blood Cells 0.5 /100 WBC (0); Platelet Count 188 K/mcL (140-400); Red Blood Count 3.08 M/mcL (3.82-4.97); Segmented Neutrophils % 77.5 %
[2019-06-16] MEDS: *HR* Heparin 5,000 UNIT/ML VIAL SQ SCH (05:12)
[2019-06-16 05:19] LABS: INR 2.5; Prothrombin Time 28.2 Seconds (9.4-12.1)
[2019-06-16 05:33] LABS: Albumin 2.7 g/dL (3.5-5.7); Albumin/Globulin Ratio 0.8 (1.1-2.2); Bilirubin,Total 0.3 mg/dL (0.3-1.0); Calcium 8.4 mg/dL (8.6-10.3); Globulin 3.4 g/dL (2.4-3.5); Magnesium 1.9 mg/dL (1.6-2.6); Potassium 2.9 mEq/L (3.5-5.1); Total Protein 6.1 g/dL (6.4-8.9)
[2019-06-16] MEDS ORDERED: Potassium Chloride Elixir 20 MEQ/15 ML UDC PO ONE ×2 (07:44→17:00)
[2019-06-16] MEDS: Aspirin Enteric Coated 81 MG Tablet PO SCH (09:35)
[2019-06-16] MEDS: Lactulose Oral Soln 20 GM/30 ML UDC PO SCH (09:36)
[2019-06-16] MEDS: Metoprolol XL (24 HR) Succ 25 MG TAB.ER.24H PO SCH (09:36)
[2019-06-16] MEDS: Famotidine 20 MG TABLET PO SCH (09:36)
[2019-06-16] MEDS: Clindamycin 600 MG/50 ML 600 MG/50 ML IV.SOLN IVPB SCH ×2 (09:36→15:56)
[2019-06-16] MEDS: Gentamicin Oint 15 GM TUBE TP SCH (09:37)
[2019-06-16] MEDS: Nystatin POWDER 30 GM BOTTLE TP SCH ×3 (09:37→20:30)
[2019-06-16 16:53] LABS: Adenovirus Not Detected (Not Detect); Bordetella Pertussis Not Detected (Not Detect); Chlamydophila pneumoniae Not Detected (Not Detect); Coronavirus 229E Not Detected (Not Detect); Coronavirus HKU1 Not Detected (Not Detect); Coronavirus NL63 Not Detected (Not Detect); Coronavirus OC43 Not Detected (Not Detect); Human Metapneumovirus Not Detected (Not Detect); Human Rhinovirus/Enterovirus Not Detected (Not Detect); Influenza A Subtype 2009 H1 Not Detected (Not Detect); Influenza A Untypeable Not Detected (Not Detect); Influenza B Not Detected (Not Detect); Mycoplasma pneumoniae Not Detected (Not Detect); Parainfluenza Virus 1 Not Detected (Not Detect); Parainfluenza Virus 2 Not Detected (Not Detect); Parainfluenza Virus 3 Not Detected (Not Detect); Parainfluenza Virus 4 Not Detected (Not Detect); Respiratory Syncytial Virus Not Detected (Not Detect)
[2019-06-16] MEDS ORDERED: Vancomycin 1 EACH in 0.9 % Sodium Chloride 250 ML IVPB SCH (18:00)
[2019-06-17 04:24] LABS: Basophils % 0.2 %; Eosinophils # 0.6 K/mcL (0.0-0.6); Eosinophils % 3.3 %; Hematocrit 26.4 % (35.3-44.9); Hemoglobin 8.5 g/dL (11.5-15.4); INR 1.9; Immature Granulocytes % 2.2 % (0-4); Lymphocytes # 1.4 K/mcL (0.6-4.6); Lymphocytes % 7.5 %; Mean Corpuscular HGB Conc 32.2 g/dL (31.6-35.5); Mean Corpuscular Hemoglobin 27.2 pg (28.0-33.3); Mean Corpuscular Volume 84.6 fL (83.0-100.0); Mean Platelet Volume 10.6 fL (9.4-12.4); Monocytes # 1.1 K/mcL (0.0-1.3); Monocytes % 6.1 %; Nucleated Red Blood Cells 0.2 /100 WBC (0); Platelet Count 171 K/mcL (140-400); Prothrombin Time 21.3 Seconds (9.4-12.1); Red Blood Count 3.12 M/mcL (3.82-4.97); Red Cell Distribution Width 16.3 % (11.5-14.5); Segmented Neutrophils % 80.7 %; White Blood Count 18.6 K/mcL (4.3-11.1)
[2019-06-17 04:43] LABS: Albumin 2.8 g/dL (3.5-5.7); Albumin/Globulin Ratio 0.8 (1.1-2.2); Bilirubin,Total 0.3 mg/dL (0.3-1.0); Globulin 3.4 g/dL (2.4-3.5); Potassium 3.7 mEq/L (3.5-5.1); Total Protein 6.2 g/dL (6.4-8.9)
[2019-06-17 04:49] LABS: Fibrinogen 558 mg/dL (169-393)
[2019-06-17 04:50] LABS: D-Dimer 1697 ng/mLFEU (0-500)
[2019-06-17 04:52] LABS: Carcinoembryonic Antigen 2.9 ng/mL (Less than 5.0)
[2019-06-17] MEDS: ALPRAZolam 0.5 MG TABLET PO PRN ×2 (06:34→21:06)
[2019-06-17] MEDS: Aspirin Enteric Coated 81 MG Tablet PO SCH (10:11)
[2019-06-17] MEDS: *HR* OxyCODONE/APAP 5/325 TABLET PO PRN ×2 (10:11→18:00)
[2019-06-17] MEDS: Metoprolol XL (24 HR) Succ 25 MG TAB.ER.24H PO SCH (10:11)
[2019-06-17] MEDS: Nystatin POWDER 30 GM BOTTLE TP SCH ×3 (10:12→21:06)
[2019-06-17] MEDS: Lactulose Oral Soln 20 GM/30 ML UDC PO SCH (10:12)
[2019-06-17] MEDS: Gentamicin Oint 15 GM TUBE TP SCH ×2 (10:18→11:34)
[2019-06-17] MEDS: Famotidine 20 MG TABLET PO SCH ×2 (11:35→21:05)
[2019-06-17] MEDS ORDERED: *HR* Metoprolol 5 MG/5 ML VIAL IVP ONE (14:22)
[2019-06-17] MEDS ORDERED: Ipratropium/Albuterol Neb 3 ML IH PRN (18:07)
[2019-06-18] MEDS: *HR* OxyCODONE/APAP 5/325 TABLET PO PRN ×2 (01:59→09:15)
[2019-06-18 04:11] LABS: Hematocrit 26.4 % (35.3-44.9); Hemoglobin 8.6 g/dL (11.5-15.4); Mean Corpuscular HGB Conc 32.6 g/dL (31.6-35.5); Mean Corpuscular Hemoglobin 27.9 pg (28.0-33.3); Mean Corpuscular Volume 85.7 fL (83.0-100.0); Mean Platelet Volume 10.8 fL (9.4-12.4); Platelet Count 226 K/mcL (140-400); Red Blood Count 3.08 M/mcL (3.82-4.97); Red Cell Distribution Width 16.6 % (11.5-14.5); White Blood Count 18.1 K/mcL (4.3-11.1)
[2019-06-18 04:26] LABS: Potassium 3.3 mEq/L (3.5-5.1)
[2019-06-18] MEDS: Lactulose Oral Soln 20 GM/30 ML UDC PO SCH (09:16)
[2019-06-18] MEDS: Nystatin POWDER 30 GM BOTTLE TP SCH ×3 (09:17→21:01)
[2019-06-18] MEDS: Metoprolol XL (24 HR) Succ 25 MG TAB.ER.24H PO SCH (09:17)
[2019-06-18] MEDS: Aspirin Enteric Coated 81 MG Tablet PO SCH (09:17)
[2019-06-18] MEDS: ALPRAZolam 0.5 MG TABLET PO PRN (10:44)
[2019-06-18] MEDS ORDERED: Ondansetron 4 MG/2 ML VIAL IVP PRN (11:56)
[2019-06-18] MEDS: Gentamicin Oint 15 GM TUBE TP SCH (21:01)
[2019-06-18] MEDS: Famotidine 20 MG TABLET PO SCH (21:01)
[2019-06-19] MEDS: *HR* OxyCODONE/APAP 5/325 TABLET PO PRN ×2 (01:48→13:23)
[2019-06-19] MEDS: ALPRAZolam 0.5 MG TABLET PO PRN ×2 (01:48→21:58)
[2019-06-19 01:50] LABS: Basophils % 0.1 %; Eosinophils # 0.5 K/mcL (0.0-0.6); Eosinophils % 2.8 %; Hemoglobin 8.5 g/dL (11.5-15.4); Immature Granulocytes % 1.2 % (0-4); Lymphocytes % 5.7 %; Mean Corpuscular HGB Conc 32.7 g/dL (31.6-35.5); Mean Corpuscular Hemoglobin 27.7 pg (28.0-33.3); Mean Corpuscular Volume 84.7 fL (83.0-100.0); Mean Platelet Volume 10.3 fL (9.4-12.4); Monocytes # 0.8 K/mcL (0.0-1.3); Monocytes % 4.5 %; Neutrophils # 14.9 K/mcL (1.6-8.9); Platelet Count 307 K/mcL (140-400); Red Blood Count 3.07 M/mcL (3.82-4.97); Red Cell Distribution Width 16.8 % (11.5-14.5); Segmented Neutrophils % 85.7 %; White Blood Count 17.4 K/mcL (4.3-11.1)
[2019-06-19 02:08] LABS: BUN/Creatinine Ratio 20 (6-26); Blood Urea Nitrogen 19 mg/dL (8-23); Calcium 9.2 mg/dL (8.6-10.3); Carbon Dioxide 23 mEq/L (23-29); Chloride 109 mEq/L (98-107); Glucose 115 mg/dL (70-105); Osmolality,Calculated 295 (280-300); Potassium 3.6 mEq/L (3.5-5.1); Sodium 141 mEq/L (136-145); eGFR For African Americans > 60 (> 60); eGFR For Non-African Americans 56 (> 60)
[2019-06-19] MEDS ORDERED: *HR* Metoprolol 5 MG/5 ML VIAL IVP ONE (04:43)
[2019-06-19] MEDS ORDERED: *HR* Labetalol 20 MG/4 ML SYRINGE IVP ONE (06:44)
[2019-06-19] MEDS ORDERED: *HR* Labetalol 20 MG/4 ML SYRINGE IVP PRN (07:30)
[2019-06-19] MEDS: Lactulose Oral Soln 20 GM/30 ML UDC PO SCH (08:21)
[2019-06-19] MEDS: Aspirin Enteric Coated 81 MG Tablet PO SCH (08:21)
[2019-06-19] MEDS: Metoprolol XL (24 HR) Succ 25 MG TAB.ER.24H PO SCH (08:21)
[2019-06-19] MEDS: Nystatin POWDER 30 GM BOTTLE TP SCH ×3 (08:35→21:58)
[2019-06-19] MEDS: Famotidine 20 MG TABLET PO SCH (21:58)
[2019-06-19] MEDS: Gentamicin Oint 15 GM TUBE TP SCH (21:59)
[2019-06-19] MEDS: Haloperidol Oral Conc 10 MG/5 ML UDC PO PRN (22:02)
[2019-06-20] MEDS: Haloperidol Oral Conc 10 MG/5 ML UDC PO PRN (03:20)
[2019-06-20 03:35] LABS: Basophils % 0.1 %; Eosinophils # 0.7 K/mcL (0.0-0.6); Eosinophils % 4.9 %; Hematocrit 25.2 % (35.3-44.9); Immature Granulocytes % 0.8 % (0-4); Lymphocytes # 1.2 K/mcL (0.6-4.6); Lymphocytes % 8.7 %; Mean Corpuscular HGB Conc 31.7 g/dL (31.6-35.5); Mean Corpuscular Hemoglobin 26.9 pg (28.0-33.3); Mean Corpuscular Volume 84.8 fL (83.0-100.0); Mean Platelet Volume 10.2 fL (9.4-12.4); Monocytes # 0.9 K/mcL (0.0-1.3); Monocytes % 6.7 %; Neutrophils # 10.6 K/mcL (1.6-8.9); Platelet Count 387 K/mcL (140-400); Red Blood Count 2.97 M/mcL (3.82-4.97); Red Cell Distribution Width 16.9 % (11.5-14.5); Segmented Neutrophils % 78.8 %; White Blood Count 13.5 K/mcL (4.3-11.1)
[2019-06-20 03:51] LABS: BUN/Creatinine Ratio 15 (6-26); Blood Urea Nitrogen 13 mg/dL (8-23); Calcium 8.6 mg/dL (8.6-10.3); Carbon Dioxide 21 mEq/L (23-29); Chloride 108 mEq/L (98-107); Glucose 103 mg/dL (70-105); Osmolality,Calculated 286 (280-300); Potassium 3.1 mEq/L (3.5-5.1); Sodium 138 mEq/L (136-145); eGFR For African Americans > 60 (> 60); eGFR For Non-African Americans > 60 (> 60)
[2019-06-20] MEDS: Lactulose Oral Soln 20 GM/30 ML UDC PO SCH (10:08)
[2019-06-20] MEDS: Metoprolol XL (24 HR) Succ 25 MG TAB.ER.24H PO SCH (10:08)
[2019-06-20] MEDS: Aspirin Enteric Coated 81 MG Tablet PO SCH (10:08)
[2019-06-20 11:14] VITALS: BP 170/74
[2019-06-20] MEDS: Nystatin POWDER 30 GM BOTTLE TP SCH ×2 (13:51→14:49)
[2019-06-20] MEDS: *HR* OxyCODONE/APAP 5/325 TABLET PO PRN (13:55)
[2019-06-20] MEDS ORDERED: Artificial Tears SOLN 15 ML BOTTLE BOTH EYES PRN (13:59)
[2019-06-21] MEDS ORDERED: *HR* Enoxaparin 40 MG/0.4 ML SYRINGE SQ SCH (06:00)
== END 2019-06-20 16:45 | DRG 871 ==
LOC: EMEROOARM 03:29 → 2NNU 03:29 → SUATTDRO 08:25 → ICNU 06-12 04:31 → 2ANU 06-15 12:58
PROVIDERS: ADMIT Internal Medicine; ATTEND Student in an Organized Health Care Education/Training Program

== ENCOUNTER 2019-08-30 15:17 | Inpatient (IN) ==
[2019-08-30] MEDS ORDERED: 0.9 % Sodium Chloride 1,000 ML ONE (15:37)
[2019-08-30] MEDS ORDERED: Piperacillin/Tazobactam 3.375 GM in 0.9 % Sodium Chloride Mini Bag 100 ML IVPB ONE (15:42)
[2019-08-30] MEDS ORDERED: 0.9 % Sodium Chloride 1,000 ML IVC ONE (16:10)
[2019-08-30] MEDS ORDERED: 0.9 % Sodium Chloride 500 ML IVC STA ×2 (16:10→16:11)
[2019-08-30 16:14] LABS: Bilirubin,Urine Negative (Negative); Blood,Urine Negative (Negative); Clarity,Urine Clear (Clear); Color,Urine Yellow (Yellow); Glucose,Urine (UA) Normal (Normal); Ketones,Urine Negative (Negative); Leukocyte Esterase,Urine Negative (Negative); Nitrite,Urine Negative (Negative); Protein,Urine Negative (Neg-Trace); Urobilinogen,Urine Normal (Normal)
[2019-08-30 16:16] LABS: Basophils % 0.1 %; Eosinophils # 0.1 K/mcL (0.0-0.6); Eosinophils % 0.9 %; Hematocrit 25.4 % (35.3-44.9); Immature Granulocytes % 1.3 % (0-4); Lymphocytes # 1.8 K/mcL (0.6-4.6); Lymphocytes % 26.3 %; Mean Corpuscular HGB Conc 31.5 g/dL (31.6-35.5); Mean Corpuscular Hemoglobin 24.5 pg (28.0-33.3); Mean Corpuscular Volume 77.9 fL (83.0-100.0); Mean Platelet Volume 9.3 fL (9.4-12.4); Monocytes # 0.4 K/mcL (0.0-1.3); Monocytes % 5.9 %; Neutrophils # 4.6 K/mcL (1.6-8.9); Platelet Count 527 K/mcL (140-400); Red Blood Count 3.26 M/mcL (3.82-4.97); Red Cell Distribution Width 18.2 % (11.5-14.5); Segmented Neutrophils % 65.5 %
[2019-08-30 16:29] LABS: Albumin 2.3 g/dL (3.5-5.7); Albumin/Globulin Ratio 0.6 (1.1-2.2); Bilirubin,Direct 0.3 mg/dL (0.0-0.2); Bilirubin,Indirect 0.3 mg/dL (0.0-1.0); Bilirubin,Total 0.6 mg/dL (0.3-1.0); Calcium 7.6 mg/dL (8.6-10.3); Globulin 3.6 g/dL (2.4-3.5); Potassium 1.8 mEq/L (3.5-5.1); Total Protein 5.9 g/dL (6.4-8.9)
[2019-08-30 16:47] LABS: ABG Base Excess 6 mEq/L (-2 to 3); ABG HCO3 30 mEq/L (21-27); ABG Oxygen Saturation 100 % (95-98); ABG PCO2 39 mmHg (35-45); ABG PH 7.49 pH Units (7.32-7.45); ABG PO2 182 mmHg (85-104); ABG TCO2 31 mEq/L (20-26)
[2019-08-30 17:23] LABS: Troponin I 0.09 ng/mL (< 0.04)
[2019-08-30] MEDS ORDERED: Nitroglycerin 0.4 MG TAB.SUBL SL PRN (17:23)
[2019-08-30] MEDS ORDERED: Ipratropium/Albuterol Neb 3 ML IH PRN (17:23)
[2019-08-30] MEDS ORDERED: Artificial Tears SOLN 15 ML BOTTLE BOTH EYES PRN (17:23)
[2019-08-30] MEDS ORDERED: ALPRAZolam 0.5 MG TABLET PO PRN (17:23)
[2019-08-30] MEDS ORDERED: Naloxone 0.4 MG/ML INJ IVP PRN (17:26)
[2019-08-30] MEDS ORDERED: Atropine Sulfate 1% 40 DROP/2 ML BOTTLE SL PRN (17:30)
[2019-08-30] MEDS ORDERED: *HR* Promethazine 25 MG/ML VIAL IVP PRN (17:33)
[2019-08-30] MEDS ORDERED: *HR* FentaNYL PATCH 50 MCG PATCH TD SCH (18:15)
[2019-08-30] MEDS ORDERED: Haloperidol Lactate 5 MG/ML VIAL IVP PRN (18:41)
[2019-08-30] MEDS: Ringers Solution, Lactated 1,000 ML IVC SCH (18:58)
[2019-08-30] MEDS ORDERED: *HR* OxyCODONE ER (12 HR) 10 MG TABLET PO SCH (20:00)
[2019-08-30] MEDS ORDERED: Famotidine 20 MG TABLET PO SCH (21:00)
[2019-08-30] MEDS: Ondansetron 4 MG/2 ML VIAL IVP PRN (21:44)
[2019-08-30] MEDS: Gentamicin Oint 15 GM TUBE TP SCH (21:46)
[2019-08-31] MEDS: *HR* LORazepam 2 MG/ML VIAL IVP PRN ×4 (00:41→23:14)
[2019-08-31] MEDS: Ringers Solution, Lactated 1,000 ML IVC SCH (04:59)
[2019-08-31] MEDS: Piperacillin/Tazobactam 3.375 GM in 0.9 % Sodium Chloride Mini Bag 100 ML IVPB SCH ×2 (05:05→15:46)
[2019-08-31] MEDS ORDERED: Aminoglycoside Consult 1 EACH MC ONE (08:42)
[2019-08-31] MEDS ORDERED: Vancomycin 1 EACH in 0.9 % Sodium Chloride 250 ML IVPB PRN (09:00)
[2019-08-31] MEDS ORDERED: Lactulose Oral Soln 20 GM/30 ML UDC PO SCH (09:00)
[2019-08-31 09:12] LABS: Basophils % 0.1 %; Eosinophils % 0.2 %; Immature Granulocytes % 0.3 % (0-4); Lymphocytes # 0.4 K/mcL (0.6-4.6); Lymphocytes % 4.1 %; Mean Corpuscular HGB Conc 32.6 g/dL (31.6-35.5); Mean Corpuscular Volume 76.6 fL (83.0-100.0); Mean Platelet Volume 9.5 fL (9.4-12.4); Monocytes # 0.5 K/mcL (0.0-1.3); Neutrophils # 9.1 K/mcL (1.6-8.9); Platelet Count 362 K/mcL (140-400); Red Blood Count 2.48 M/mcL (3.82-4.97); Segmented Neutrophils % 90.3 %; White Blood Count 10.1 K/mcL (4.3-11.1)
[2019-08-31 09:17] LABS: Hemoglobin 6.2 g/dL (11.5-15.4)
[2019-08-31 09:41] LABS: Calcium 6.7 mg/dL (8.6-10.3); Magnesium 1.4 mg/dL (1.6-2.6); Potassium 2.1 mEq/L (3.5-5.1)
[2019-08-31] MEDS ORDERED: Potassium Chloride 40 MEQ, Lidocaine 1% 2 ML in D5% in Water 500 ML IVPB ONE (09:42)
[2019-08-31] MEDS: Aspirin Enteric Coated 81 MG Tablet PO SCH (09:43)
[2019-08-31] MEDS ORDERED: 0.9 % Sodium Chloride 250 ML IVC SCH (09:45)
[2019-08-31] MEDS: Sennosides/Docusate Sodium TABLET PO SCH ×2 (12:31→23:14)
[2019-08-31] MEDS ORDERED: Simethicone 80 MG TAB.CHEW PO PRN (13:05)
[2019-08-31] MEDS: Ondansetron 4 MG/2 ML VIAL IVP PRN ×2 (13:48→23:14)
[2019-08-31] MEDS: *HR* OxyCODONE Immed Rel 5 MG TABLET PO PRN ×2 (17:45→23:14)
[2019-08-31] MEDS: Gentamicin Oint 15 GM TUBE TP SCH (23:16)
[2019-09-01 03:26] LABS: Calcium 7.2 mg/dL (8.6-10.3); Potassium 1.9 mEq/L (3.5-5.1)
[2019-09-01] MEDS: Piperacillin/Tazobactam 3.375 GM in 0.9 % Sodium Chloride Mini Bag 100 ML IVPB SCH (04:37)
[2019-09-01] MEDS: *HR* LORazepam 2 MG/ML VIAL IVP PRN (04:38)
[2019-09-01] MEDS ORDERED: Potassium Chloride 40 MEQ, Lidocaine 1% 2 ML in 0.9 % Sodium Chloride 500 ML IVPB ONE (07:19)
[2019-09-01] MEDS: Sennosides/Docusate Sodium TABLET PO SCH ×2 (09:02→20:51)
[2019-09-01] MEDS: Aspirin Enteric Coated 81 MG Tablet PO SCH (09:02)
[2019-09-01] MEDS: Metoprolol XL (24 HR) Succ 25 MG TAB.ER.24H PO SCH (09:03)
[2019-09-01] MEDS: Potassium Chloride Elixir 20 MEQ/15 ML UDC PO SCH (09:48)
[2019-09-01] MEDS: *HR* OxyCODONE Immed Rel 5 MG TABLET PO PRN (10:42)
[2019-09-01] MEDS ORDERED: Ondansetron ODT 4 MG TAB.RAPDIS SL PRN (10:46)
[2019-09-01] MEDS: Gentamicin Oint 15 GM TUBE TP SCH (20:51)
[2019-09-02] MEDS: *HR* OxyCODONE Immed Rel 5 MG TABLET PO PRN (01:16)
[2019-09-02] MEDS ORDERED: *HR* LORazepam 0.5 MG TABLET PO PRN (02:44)
[2019-09-02 06:26] LABS: Calcium 7.8 mg/dL (8.6-10.3); Potassium 3.9 mEq/L (3.5-5.1)
[2019-09-02 07:35] VITALS: BP 128/72
[2019-09-02] MEDS: Potassium Chloride Elixir 20 MEQ/15 ML UDC PO SCH (08:44)
[2019-09-02] MEDS ORDERED: *HR* FentaNYL PATCH 50 MCG PATCH TD SCH (09:00)
[2019-09-02] MEDS: Sennosides/Docusate Sodium TABLET PO SCH (09:06)
[2019-09-02] MEDS: Aspirin Enteric Coated 81 MG Tablet PO SCH (09:06)
[2019-09-02] MEDS: Metoprolol XL (24 HR) Succ 25 MG TAB.ER.24H PO SCH (09:06)
== END 2019-09-02 10:10 | DRG 871 ==
LOC: 2ANU 15:17 → EMEROOARM 15:17 → 2ANU 18:33
PROVIDERS: ADMIT Pharmacist; ATTEND Internal Medicine